=== PATIENT | female | born 1940 | race Caucasian/White ===

== ENCOUNTER → 2018-08-02 09:28 | Outpatient (CLI) | payer MEDICARE, BC, SELFPAY ==
--- NOTE | 2018-08-02 | ASPOS_PTH ---
PATIENT: BELTRAN MARC LOC: LAB U#:[id number] AGE/SX: 85/F ROOM: RE08/02/[address]: Dr. Danish King MD : 1940 BED: DIS: SPEC #: [id number] RECD: 08/02/18 13:24 STATUS: JOEY SIMÓN #: [id number] RUSTY: 08/02/18 00:[address]: Danish King DEPT: CYTOLOGY RECD BY: Wyatt Gaines ENTERED: 08/02/18 13:24 SP TYPE: ASP HERE OTHR DR: Dr. Mela Torres, DO Tissues: Neck, NOS Procedures: Pap Stain (control) Surgery Specimen Level IV Diff Quik Stain (control) Cell Block Cytology Other Fine Needle Asp on Site HEADER OPERATION: Right neck mass fine needle aspiration PRE-OP DIAGNOSIS: Right neck mass at angle of jaw TISSUE SUBMITTED: Right neck mass FNA, smear and fluid for cytology and cell block DIAGNOSIS CYTOLOGY Fine needle aspiration, right neck mass (smears and cell block): Consistent with Warthin's tumor. AM:sherlyn 08/03/18 COMMENT The specimen is evaluated at the time of FNA by Dr. Pemberton. 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 CYTOLOGY STUDY Slides are reviewed. CYTOLOGY GROSS Received is 0.2 ml of pink-elizabeth mucoid material labeled with the patient's name, and designated right neck mass. Four imprints and two paps are made from the submitted fluid and the rest is added to [employer]to[employer] for cell block preparation. Submitted for cytology study. / AM:sherlyn 08/02/18 TC:1 CPT: 05249, 93875, 63008, 87333
--- OUTSIDE RECORDS SUMMARY | 2018-09-18 08:47 | XMS RPT_ITS ---
:1940 Author Organization OHIP Care Team Providers Name Role Phone Ras King Attending Unavailable Ras King Referring Unavailable BRAYDEN KUMAR Primary Care Unavailable EDNA ROGERS Attending Unavailable JOSÉ D.OAlex Mack Primary Care Unavailable JOSÉ D.OAlex Mack Referring Unavailable SUE EDNA K Referring Unavailable JOSÉ D.O. BRAYDEN G Primary Care Unavailable DENA ROGERS K Attending Unavailable EDNA ROGERS K Referring Unavailable JOSÉ D.O. BRAYDEN G Primary Care Unavailable SUE, EDNA K Attending Unavailable JOSÉ D.O. BRAYDEN G Primary Care Unavailable JOSÉ D.O. BRAYDEN G Referring Unavailable SUE EDNA K Referring Unavailable JOSÉ D.O. BRAYDEN G Primary Care Unavailable SUE, EDNA K Referring Unavailable JOSÉ D.O. BRAYDEN G Primary Care Unavailable SUE EDNA K Attending Unavailable JOSÉ D.OAlex OWEN G Primary Care Unavailable JOSÉ, D.O. 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 [facility] Diagnosis w/o perforation or System abscess w/o Repository bleeding / K57.32(ICD-10) 08/11/2018 Admitting Unspecified asthma, Unknown Active [facility] Diagnosis uncomplicated / System J45.909(ICD-10) Repository 08/11/2018 Admitting Gastro-esophageal Unknown Active [facility] Diagnosis reflux disease System without esophagitis Repository / K21.9(ICD-10) 08/11/2018 Admitting Essential (primary) Unknown Active [facility] Diagnosis hypertension / System I10(ICD-10) Repository 08/11/2018 Admitting Hypothyroidism, Unknown Active [facility] Diagnosis unspecified / System E03.9(ICD-10) Repository 08/11/2018 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, unsp, stage Repository unspecified / H35.3290(ICD-10) 08/11/2018 Admitting Unspecified Unknown Active [facility] Diagnosis osteoarthritis, System unspecified site / Repository M19.90(ICD-10) 08/11/2018 Admitting Type 2 diabetes Unknown Active [facility] Diagnosis mellitus without System complications / Repository E11.9(ICD-10) 08/11/2018 Admitting Personal history of Unknown Active [facility] Diagnosis malignant neoplasm System of breast / Repository Z85.3(ICD-10) 08/11/2018 Admitting Cataract extraction Unknown Active [facility] Diagnosis status, left eye / System Z98.42(ICD-10) Repository 08/11/2018 Admitting Cataract extraction Unknown Active [facility] Diagnosis status, right eye / System Z98.41(ICD-10) Repository 08/11/2018 Admitting 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 / Repository Z90.710(ICD-10) 08/11/2018 Admitting Allergy status to Unknown Active [facility] Diagnosis oth drug/meds/biol System subst status / Repository Z88.8(ICD-10) 08/11/2018 Admitting Allergy status to Unknown Active [facility] Diagnosis narcotic agent System status / Repository Z88.5(ICD-10) 08/11/2018 Admitting Allergy status to Unknown Active [facility] Diagnosis other antibiotic System agents status / Repository Z88.1(ICD-10) 08/11/2018 Admitting Allergy status to Unknown Active [facility] Diagnosis penicillin / System Z88.0(ICD-10) Repository 08/11/2018 Admitting Unspecified Unknown Active [facility] Diagnosis abdominal pain / System R10.9(ICD-10) Repository 06/15/2018 Active Fat necrosis of EDNA ROGERS Active [facility] Other N64.1(ICD-10) [place] Repository 06/15/2018 Active Encounter for EDNA ROGERS Active [facility] screening [facility] Other for malignant [place] neoplasm of breast Repository / Z12.31(ICD-10) 06/15/2018 Admitting Unknown / EDNA ROGERS Active [facility] diagnosis UNK(Unknown) [facility] Repository 06/09/2018 Active Other abnormal and NA Active [facility] inconclusive [facility] Other findings on [place] diagnostic imaging Repository of breast / R92.8(ICD-10) 06/06/2018 Active Mastodynia / EDNA ROGERS Active [facility] N64.4(ICD-10) Clinic Other [place] Repository 06/06/2018 Active Unspecified lump in EDNA ROGERS Active [facility] the right breast, Clinic Other unspecified [place] quadrant / Repository N63.10(ICD-10) 06/18/2016 Active Personal history of EDNA ROGERS Active [facility] malignant neoplasm Clinic Other of breast / [place] Z85.3(ICD-10) Repository 06/18/2016 Active Inconclusive EDNA ROGERS Active [facility] mammogram / Clinic Other R92.2(ICD-10) [place] Repository 06/18/2016 Active 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 Clinic Other unspecified breast [place] / N60.19(ICD-10) Repository 06/06/2018 Active Unspecified lump in EDNA RGOERS Active [facility] the right breast, Clinic Other lower outer [place] quadrant / Repository N63.13(ICD-10) PROCEDURES PROCEDURES No Procedure Records FoundRESULTS RESULTS CT ABDOMEN/PELVIS W/ Observed: 08/11/2018 Status: F Source: [email or web address] CONTRAST 1:26 PM SYSTEM REPOSITORY Patient Name: BELTRAN MARC CT Exam Date/Time 08/11/2018 12:50:[address] Abdomen/Pelvis w/ IV Contrast (IV Onl Ordering Physician MD ANNA, [facility] Accession Number [id number] CPT4 Codes 40087 (CT Abdomen/Pelvis w/ IV Contrast (IV Onl), Q9967 (CT ISOVUE 370MG/[id number]) Reason For Exam ABDOMINAL PAIN Report EXAMINATION: CT of the Abdomen and Pelvis with Contrast. COMPARISON: None. REASON FOR STUDY: Abdominal pain. TECHNIQUE: Contiguous axial 3 mm images along with multiplanar reformations were extended from the lung bases through the pubic symphysis after intravenous infusion of 75 mL of Isovue-370. FINDINGS: Solid Organs: The hepatic parenchyma, spleen, pancreas and adrenal glands appear normal. Biliary Tree: The biliary tree is not appreciably dilated. The gallbladder appears normal. System: The kidneys, ureters and bladder appear normal. There are signs of prior hysterectomy. No adnexal abnormality is observed. GI System: Mid sigmoid colon is thickened, poorly defined and surrounded by mesenteric haziness. These findings are superimposed on diffuse diverticulosis. Peritoneum, Retroperitoneum And Mesentery: No abnormal fluid collection or mass observed. Vasculature: No significant findings. Musculoskeletal: Osseous structures appear intact. Extraskeletal soft tissues appear normal. Lung Bases: No significant findings. CONCLUSION(S): Probable mid- sigmoid diverticulitis superimposed on diverticulosis. Report Dictated on Final Dictating Physician: MD MARCELINO B NELSON Signed Date and Time: 08/11/2018 1:32 pm Signed by: MD MARCELINO B NELSON Transcribed Date and Time: 08/11/2018 1:33 HEMOGRAM W/ AUTODIFF Collected: 08/11/2018 Status: F Source: [email or web address] 11:38 AM SYSTEM REPOSITORY TYPE CODE TESTS RESULT OUT OF REFERENCE UNITS RANGE LAB IWBC 3.6-10.7 10*3/uL WBC High 14.0 LAB RBC 3.80-5.20 10*6/uL RBC Normal 4.65 LAB HGB 11.7-16.0 g/dL Hemoglobin Normal 13.5 LAB HCT 35.0-47.0 % Hematocrit Normal 39.6 LAB MCV 79.0-98.0 fL MCV Normal 85.3 LAB MCH 26.0-34.0 pg MCH Normal 29.1 LAB MCHC 32.0-36.0 % MCHC Normal 34.1 LAB RDW 11.5-14.5 % RDW Normal 13.4 LAB PLT 140-440 10*3/uL Platelet Normal 157 LAB MPV 7.4-10.4 fL MPV High 10.9 LAB GRAN% 40.0-80.0 % Granulocytes Normal 79.5 LAB LYMP% 20.0-40.0 % Low Lymphocytes 9.2 LAB MONO% 2.0-10.0 % Monocytes Normal 7.9 LAB EOS% 1.0-6.0 % Eosinophils Normal 2.7 LAB BAS% 0.0-2.0 % Basophils Normal 0.7 LAB ANC 1.8-7.0 10*3/uL Abs High Neutrophile Cnt 11.1 LAB ALC 1.0-4.3 10*3/uL Abs Lymph Cnt Normal 1.3 LAB AMC 0.0-0.8 10*3/uL Abs Monocyte High Cnt 1.1 LAB AEC 0.0-0.5 10*3/uL Abs Eosin Cnt Normal 0.4 LAB ABC 0.0-0.2 10*3/uL Abs Baso Cnt Normal 0.1 Performed By: #### HEMDF, CMP3M, LIPA4 #### [facility] [address] [place] [address] COMP PANEL WITH MG Collected: 08/11/2018 Status: F Source: [email or web address] REFLEX 11:38 AM SYSTEM REPOSITORY TYPE CODE TESTS RESULT OUT OF RANGE REFERENCE UNITS LAB NA3 135-145 mmol/L Normal Sodium 138 Result Comment: NOTE: New Sodium Reference Range effective 2018 @ 10:00 LAB K3 3.5-5.1 mmol/L Normal Potassium 3.7 LAB CL3 98-107 mmol/L Normal Chloride 98 LAB CO23 22-30 mmol/L High Carbon Dioxide 32 LAB ANIN3 NA Anion Gap 8 LAB GLUC3 70-100 mg/dL High Glucose 120 LAB BUN3 7-20 mg/dL Normal Urea Nitrogen 16 LAB CRET3 0.52-1.25 mg/dL Normal Creatinine 0.59 LAB GF3BR >60 mL/min eGFR > 60.0 LAB GF3WR >60 mL/min eGFR OTHER > 60.0 Result Comment: Source- MDRD equation with creatinine calibration to IDMS(NKDEP) eGFR not recommended for drug dose adjustment LAB CA3 8.4-10.4 mg/dL Calcium Normal 9.1 LAB ALB3 3.5-5.0 g/dL Albumin, Serum Normal 4.5 LAB TP3 6.3-8.2 g/dL Total Protein Normal 7.2 LAB BILT3 0.2-1.3 mg/dL Normal Bilirubin,Total 0.5 LAB ALKP3 38-126 U/L Alkaline Normal Phosphatase 52 LAB ALT3 13-69 U/L ALT (SGPT) Normal 32 LAB AST3 15-46 U/L AST (SGOT) Normal 25 Performed By: #### HEMDF, CMP3M, LIPA4 #### [employer] [facility] [address] [place] [address] LIPASE Collected: 08/11/2018 Status: F Source: [employer] 11:38 AM SYSTEM REPOSITORY TYPE CODE TESTS RESULT OUT OF RANGE REFERENCE UNITS LAB LIPA4 23-300 U/L Normal Lipase 98 Performed By: #### HEMDF, CMP3M, LIPA4 #### [employer] [facility] [address] [place] [address] URINALYSIS,MACRO Collected: 08/11/2018 Status: F Source: [employer] 11:38 AM SYSTEM REPOSITORY TYPE CODE TESTS RESULT OUT OF REFERENCE UNITS RANGE LAB APPUR Clear NA Appearance Clear Result Comment: CORRECTED RESULT...Previous above value was CLOUDY, verified on 08/11/18 at 11:50 by BJF . LAB COLUR Lt. Yellow NA Color YELLOW LAB USG 1.005-1.030 NA Specific Normal Doyle,Urine 1.006 LAB UPH 5.0-8.0 NA pH,Urine Normal 7.0 LAB ULUK Negative NA Leukocytes NEG LAB UNIT Negative NA Nitrites NEG LAB UPRO Negative mg/dL Total Protein,Urine NEG LAB UGLU Negative mg/dL Glucose,Urine NEG LAB UKET Negative mg/dL Ketone,Urine NEG LAB UURO 0-1 mg/dL Urobilinogen 0.2 LAB UBIL Negative NA Bilirubin,Ur NEG LAB UBLD Negative {RBC}/uL Occult Blood,Ur NEG Performed By: #### UAMAC, UAMIC #### [facility] [employer] [facility] [address] [place] [address] URINALYSIS,MICROSCOPIC Collected: Status: F Source: [facility] 08/11/2018 11:38 AM HEALTH SYSTEM REPOSITORY TYPE CODE TESTS RESULT OUT OF REFERENCE UNITS RANGE LAB WBCU 0-5 /[HPF] 0 WBC,Urine LAB RBCU 0-2 /[HPF] 0 RBC,Urine LAB EPIU 3-5 /[HPF] 0 Epithelial Cells LAB LAWANDA Negative NA Bacteria NEGATIVE LAB HYL 0-1 /[LPF] Cast, 0 Hyaline LAB YST Negative NA Yeast NOT PRESENT LAB SPRM Negative NA Sperm NOT PRESENT Performed By: #### UAMAC, UAMIC #### [facility] [address] [place] [address] ED PROVIDER NOTE Observed: 08/11/2018 Status: F Source: [employer] 11:02 AM SYSTEM REPOSITORY eMERGENCY dEPARTMENT eNCOUnter Pt Name: Beltran Marc Birthdate 1940 Date of evaluation: 08/11/2018 Provider: ROBERT CASTILLO MD CHIEF COMPLAINT Chief Complaint Patient presents with ? Abdominal Pain HISTORY OF PRESENT ILLNESS (Location/Symptom, Timing/Onset,Context/Setting, Quality, Duration, Modifying Factors, Severity) Note limiting factors. HPI Beltran Marc is a 78 y.o. female who presents to the emergency department Reports abdominal pain, symptoms started 6 days ago, symptoms at daily, she reports that she has pain in her LEFT flank but mostly in the rectum. She feels rectal urgency. The pain radiates from the LEFT flank to the rectum. Pain is sharp, intermittent, currently it is 0 out of 10. She has had nausea but no vomiting, no diarrhea. No hematochezia. She had a temperature of 100.4?F at home. Relief with bowel movement. No exacerbating factor. REVIEW OFSYSTEMS Review of Systems All other systems reviewed and are negative. PAST MEDICAL HISTORY Past Medical History: Diagnosis Date ? Asthma ? GERD (gastroesophageal reflux disease) ? History of breast cancer in female ? Hypertension ? Hypothyroidism ? Macular degeneration, wet (HCC) ? Osteoarthritis ? Swollen ankles ? Type II or unspecified type diabetes mellitus without mention of complication, not stated as uncontrolled SURGICAL HISTORY Past Surgical History: Procedure Laterality Date ? BREAST LUMPECTOMY Right ? CATARACT REMOVAL Bilateral ? EYE SURGERY ? HEMORRHOID SURGERY ? HYSTERECTOMY 03/1991 ? TONSILLECTOMY CURRENT MEDICATIONS Discharge Medication List as of 08/11/2018 2:15 PM CONTINUE these medications which have NOT CHANGED Details latanoprost (XALATAN) 0.005 % ophthalmic solution Place 1 drop into the right eye nightlyHistorical Med hydrALAZINE (APRESOLINE) 100 MG tablet Take 1 tablet by mouth every 8 hours, Disp-90 tablet, R-3Normal omeprazole (PRILOSEC) 40 MG delayed release capsule Take 40 mg by mouth dailyHistorical Med metoprolol succinate (TOPROL XL) 50 MG extended release tablet Take 50 mg by mouth dailyHistorical Med EPINEPHrine (EPIPEN 2-MELI) 0.3 MG/0.3ML SOAJ injection Inject 0.3 mg into the muscle as needed Use as directed for allergic reactionHistorical Med cloNIDine (CATAPRES) 0.2 MG tablet Take 0.2 mg by mouth 3 times dailyHistorical Med Lactobacillus (PROBIOTIC ACIDOPHILUS) CAPS Take 1 capsule by mouth dailyHistorical Med calcium citrate-vitamin D (CITRICAL + D) 315-250 MG-UNIT TABS per tablet Take 2 tablets by mouth 2 times daily (with meals)Historical Med Pyridoxine HCl (VITAMIN B-6) 50 MG tablet Take 50 mg by mouth 2 times dailyHistorical Med levothyroxine (SYNTHROID) 75 MCG tablet Take 1 tablet by mouth Daily, Disp-90 tablet, R-1 furosemide (LASIX) 20 MG tablet Take 1 tablet by mouth daily, Disp-90 tablet, R-1 enalapril (VASOTEC) 20 MG tablet Take 1 tablet by mouth 2 times daily, Disp-180 tablet, R-1 fluticasone (FLONASE) 50 MCG/ACT nasal spray 2 sprays by Nasal route daily, Disp-3 Bottle, R-1 guaiFENesin (MUCINEX) 600 MG SR tablet Take 2 tablets by mouth 2 times daily, Disp-180 tablet, R-1 magnesium (MAGNESIUM-OXIDE) 250 MG TABS tablet Take 250 mg by mouth 2 times daily Historical Med clobetasol (TEMOVATE) 0.05 % cream Apply topically as needed Apply topically 2 times daily. , Topical, PRN, Until Discontinued, Historical Med Ascorbic Acid (VITAMIN C) 250 MG tablet Take 500 mg by mouth 2 times daily vitamin E 400 UNIT capsule Take 400 Units by mouth daily selenium 50 MCG tablet Take 50 mcg by mouth daily Cholecalciferol (VITAMIN D-3 PO) Take 400 mg by mouth daily Historical Med ALLERGIES Amaranth (fd&c red #2); Apple; Barley grass; Cha pod extract; Benadryl [diphenhydramine]; [place]-containing products; Demerol hcl [meperidine]; Erythromycin; Grapeseed extract [nutritional supplements]; Levaquin [levofloxacin in d5w]; Molds & smuts; Neomycin; [place] fruit [citrus]; Peanut-containing drug products; Pollen extract; Quinoa kale & hemp [alitraq]; Rice; [place] grass flower pollen extract [gramineae pollens]; Soybean-containing drug products; Tree nut [macadamia nut oil]; Wheat bran; Zyrtec [cetirizine]; Avapro [irbesartan]; Cephalosporins; Codeine; Cozaar [losartan]; Lexapro [escitalopram oxalate]; Norvasc [amlodipine besylate]; and Pcn [penicillins] FAMILY HISTORY Family History Problem Relation Age of Onset ? Cancer Mother ? Cancer Father skin ? High Blood Pressure Father ? Heart Disease Father ? Diabetes Father SOCIAL HISTORY Social History Social History ? Marital status: Spouse name: N/A ? Number of children: N/A ? Years of education: N/A Social History Main Topics ? Smoking status: Never Smoker ? Smokeless tobacco: Never Used ? Alcohol use No ? Drug use: No ? Sexual activity: Not Asked Other Topics Concern ? None Social History Narrative ? None PHYSICAL EXAM Physical Exam Constitutional: Non-toxic appearance. HENT: Head: Atraumatic. Right Ear: External ear normal. Left Ear: External ear normal. Nose: Nose normal. Mouth/Throat: Oropharynx is clear and moist. Eyes: Conjunctivae are normal. Neck: Neck supple. No JVD present. No tracheal deviation present. Cardiovascular: Normal rate, regular rhythm and normal heart sounds. Pulmonary/Chest: Effort normal and breath sounds normal. Abdominal: Soft. Bowel sounds are normal. She exhibits no distension. There is no tenderness. There is no rebound and no guarding. Musculoskeletal: Right lower leg: She exhibits no tenderness and no swelling. Left lower leg: She exhibits no tenderness and no swelling. Lymphadenopathy: She has no cervical adenopathy. Neurological: She is alert. Coordination normal. Skin: No rash noted. She is not diaphoretic. No erythema. No pallor. Psychiatric: She has a normal mood and affect. Her behavior is normal. Thought content normal. Nursing note and vitals reviewed. Vitals: 08/11/18 1107 08/11/18 1430 BP: (!) 185/90 (!) 166/71 Pulse: 73 65 Resp: 20 18 Temp: 98.6 ?F (37 ?C) TempSrc: Temporal SpO2: 96% 97% Weight: 67.8 kg (149 lb 8 oz) DIAGNOSTIC RESULTS EKG RADIOLOGY Interpretation per the Radiologist below, if available at the time of this note: Ct Abdomen Pelvis W Contrast Result Date: 08/11/2018 Patient Name: BELTRAN MARC ---CT--- Exam Date/Time 08/11/2018 12:50:[address] Abdomen/Pelvis w/ IV Contrast (IV Onl Ordering Physician MD ANNA, [facility] Accession Number [id number] CPT4 Codes 24777 (CT Abdomen/Pelvis w/ IV Contrast (IV Onl), Q9967 (CT ISOVUE 370MG/ML&[id number]&ML&[id number]) Reason For Exam ABDOMINAL PAIN Report EXAMINATION: CT of the Abdomen and Pelvis with Contrast. COMPARISON: None. REASON FOR STUDY: Abdominal pain. TECHNIQUE: Contiguous axial 3 mm images along with multiplanar reformations were extended from the lung bases through the pubic symphysis after intravenous infusion of 75 mL of Isovue-370. FINDINGS: Solid Organs: The hepatic parenchyma, spleen, pancreas and adrenal glands appear normal. Biliary Tree: The biliary tree is not appreciably dilated. The gallbladder appears normal. System: The kidneys, ureters and bladder appear normal. There are signs of prior hysterectomy. No adnexal abnormality is observed. GI System: Mid sigmoid colon is thickened, poorly defined and surrounded by mesenteric haziness. These findings are superimposed on diffuse diverticulosis. Peritoneum, Retroperitoneum And Mesentery: No abnormal fluid collection or mass observed. Vasculature: No significant findings. Musculoskeletal: Osseous structures appear intact. Extraskeletal soft tissues appear normal. Lung Bases: No significant findings. CONCLUSION(S): Probable mid- sigmoid diverticulitis superimposed on diverticulosis. Report Dictated on --- Final --- Dictating Physician: MD MARCELINO B NELSON Signed Date and Time: 08/11/2018 1:32 pm Signed by: MD MARCELINO B NELSON Transcribed Date and Time: 08/11/2018 1:33 SCREENINGS LABS: Results for orders placed or performed during the hospital encounter of 08/11/18 Hemogram (CBC) w/Auto Diff Result Value Ref Range WBC 14.0 (H) 3.6 - 10.7 10*3/uL RBC 4.65 3.80 - 5.20 10*6/uL Hemoglobin 13.5 11.7 - 16.0 g/dL Hematocrit 39.6 35.0 - 47.0 % MCV 85.3 79.0 - 98.0 fL MCH 29.1 26.0 - 34.0 pg MCHC 34.1 32.0 - 36.0 % RDW 13.4 11.5 - 14.5 % Platelets 157 140 - 440 10*3/uL MPV 10.9 (H) 7.4 - 10.4 fL Granulocytes % 79.5 40.0 - 80.0 % Lymphocyte % 9.2 (L) 20.0 - 40.0 % Monocytes 7.9 2.0 - 10.0 % Eosinophils 2.7 1.0 - 6.0 % Basophils 0.7 0.0 - 2.0 % Absolute Neut # 11.1 (H) 1.8 - 7.0 10*3/uL Absolute Lymph # 1.3 1.0 - 4.3 10*3/uL Absolute [place] # 1.1 (H) 0.0 - 0.8 10*3/uL Absolute Eos # 0.4 0.0 - 0.5 10*3/uL Absolute Baso # 0.1 0.0 - 0.2 10*3/uL Comprehensive Metabolic Panel w/ Reflex to MG Result Value Ref Range Sodium 138 135 - 145 mmol/L Potassium 3.7 3.5 - 5.1 mmol/L Chloride 98 98 - 107 mmol/L CO2 32 (H) 22 - 30 mmol/L Anion Gap 8 NA Glucose 120 (H) 70 - 100 mg/dL BUN 16 7 - 20 mg/dL CREATININE 0.59 0.52 - 1.25 mg/dL eGFR >60.0 >60 mL/min EGFR IF NonAfrican Ivorian >60.0 >60 mL/min Calcium 9.1 8.4 - 10.4 mg/dL Albumin,Serum 4.5 3.5 - 5.0 g/dL Total Protein 7.2 6.3 - 8.2 g/dL Total Bilirubin 0.5 0.2 - 1.3 mg/dL Alkaline Phosphatase 52 38 - 126 U/L ALT 32 13 - 69 U/L AST 25 15 - 46 U/L Lipase Result Value Ref Range Lipase 98 23 - 300 U/L Urinalysis, reflex to microscopic Result Value Ref Range Appearance Clear Clear NA Color, UA YELLOW Lt. Yellow NA Specific Doyle, Urine 1.006 1.005 - 1.030 NA pH, Urine 7.0 5.0 - 8.0 NA LEUKOCYTES, UA NEG Negative NA Nitrite, Urine NEG Negative NA Total Protein, Urine NEG Negative mg/dL Glucose, Ur NEG Negative mg/dL Ketones, Urine NEG Negative mg/dL Urobilinogen, Urine 0.2 0 - 1 mg/dL Bilirubin, Urine NEG Negative NA Occult Blood,Urine NEG Negative [RBC]/uL Urinalysis with Microscopic Result Value Ref Range WBC, UA 0 0 - 5 /[HPF] RBC, UA 0 0 - 2 /[HPF] Epithelial Cells 0 3 - 5 /[HPF] Bacteria, UA NEGATIVE Negative NA Hyaline Casts, UA 0 0 - 1 /[LPF] Yeast, UA NOT PRESENT Negative NA Sperm, UA NOT PRESENT Negative NA EMERGENCY DEPARTMENT COURSE and DIFFERENTIAL DIAGNOSIS/MDM: ED Medication Orders Start Ordered Status Ordering Provider 08/11/18 1231 08/11/18 1231 iopamidol (ISOVUE-370) 76 % injection 75 mL IMG ONCE PRN Last OCT action: Given - by BALTAZAR COX on 08/11/18 at 1238 ROBERT CASTILLO 08/11/18 1116 08/11/18 1115 0.9 % sodium chloride bolus ONCE Last OCT action: Stopped - by MELINDA RODRÍGUEZ on 08/11/18 at 1207 ROBERT CASTILLO MDM. REVAL: CONSULTS: None PROCEDURES: Procedures FINAL IMPRESSION 1. Sigmoid diverticulitis DISPOSITION/PLAN DISPOSITION Decision To Discharge 08/11/2018 02:13:23 PM PATIENT REFERRED TO: Brayden Kumar DO [address] [place] [id number] In 1 day [facility] ED [address] [facility] [address] In 1 day if not better DISCHARGE MEDICATIONS: Discharge Medication List as of 08/11/2018 2:15 PM START taking these medications Details metroNIDAZOLE (FLAGYL) 500 MG tablet Take 1 tablet by mouth 3 times daily for 4 days, Disp-12 tablet, R-0Print MD Robert RODRIGUEZ MD 08/12/18 0927 ASP DONE IN LAB Observed: 08/02/2018 Status: F Source: [facility] 12:00 AM [facility] REPOSITORY Patient: BELTRAN MARC : 1940 (78/F) Acct Num: [id number] Phys: Christine CABA,[place] Unit Num: [id number] Loc: LAB Specimen: [id number] Received: 08/02/18 - 1324 Spec Type: ASP HERE TISSUES 1 TISSUES: Neck, NOS COMMENT The specimen is evaluated at the time of FNA by Dr. Pemberton. 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 CYTOLOGY GROSS Received is 0.2 ml of pink-elizabeth mucoid material labeled with the patient's name, and designated right neck mass. Four imprints and two paps are made from the submitted fluid and the rest is added to CytoLyt for cell block preparation. Submitted for cytology study. / AM:sherlyn 08/02/18 TC:1 CPT: 45888, 00430, 22168, 34987 CYTOLOGY STUDY Slides are reviewed. DIAGNOSIS CYTOLOGY Fine needle aspiration, right neck mass (smears and cell block): Consistent with Warthin's tumor. AM:sherlyn 08/03/18 HEADER OPERATION: Right neck mass fine needle aspiration PRE-OP DIAGNOSIS: Right neck mass at angle of jaw TISSUE SUBMITTED: Right neck mass FNA, smear and fluid for cytology and cell block Signed Kike Pemberton 08/03/18 <signature on file> Performed By: #### PASPOS #### [facility]ri [facility] [address] [place], [address] PROGRESS Observed: 06/15/2018 Status: COMPLETED Source: [place] 10:51 AM CLINIC OTHER CAMPUS REPOSITORY HNO ID: [id number] Author: Edna Rogers Service: (none) Author Type: Physician Type: Progress Notes Filed: 06/15/2018 11:35 AM Note Text: HPI: Ms. Marc is a White 78 year old woman who presents for follow up breast biopsy. Patient does perform monthly self breast exams. Patient denies: concerns FAMILY HISTORY Problem Relation Age of Onset - Hypertension Father - Heart Father - Diabetes Father - Lipids Mother - Heart Mother - Osteoporosis Mother - Heart Brother - Breast Cancer Paternal Aunt great PAST MEDICAL HISTORY Diagnosis Date - Asthma - Breast cancer (HCC) 2004 right lumpectomy - Dense breast 05/16/15 - Diabetes (HCC) - Fibrocystic disease of breast 05/16/15 - GERD (gastroesophageal reflux disease) - Hemorrhoid - History of anemia - Hypertension - Migraine - Multiple allergies PAST SURGICAL HISTORY Procedure Laterality Date - APPENDECTOMY - BREAST SURGERY HX Right 05/04/2005 right lumpectomy - BREAST SURGERY HX 05/15/2005 [place] Lymph Node Biopsy - BREAST SURGERY HX Left 09/14/2005 Benign Papilloma - BREAST SURGERY HX Left 12/15/2010 benign Fatty tumor - BREAST SURGERY HX Right 03/21/2012 Benign Fatty tumor - DELIVERY ONLY , low transverse - DELIVERY ONLY , low transverse - EYE SURGERY HX Right 03/07/2009 Cataract - EYE SURGERY HX Left 04/04/2009 Cataract - SKIN BIOPSY HX 10/11/2012 atypical mole - SKIN BIOPSY HX 05/25/2014 atypical mole - TONSILLECTOMY AND ADENOIDECTOMY HX - TOTAL ABDOM HYSTERECTOMY 1990 Hysterectomy, SHANDA Social History Marital status: Spouse name: Years of education: Number of children: Social History Main Topics Smoking status: Never Smoker Smokeless tobacco: Never Used Alcohol use: No Drug use: No No question data found. LAB AND IMAGING RESULTS: FINAL DIAGNOSIS: ?BREAST, RIGHT SUBAREOLAR AT 6 O'CLOCK, CORE BIOPSIES - BENIGN BREAST TISSUE WITH EXTENSIVE FIBROSIS WITH FAT NECROSIS AND CHRONIC INFLAMMATION. OPERATIVE PROCEDURE: Ultrasound guided right breast biopsy CLINICAL INFORMATION: Right breast mass subareolar 6:00 , clip:coil; suspicious distortion/ thickening at site of prior lumpectomy xrt ? recurrent CA vs scar. REVIEW OF SYSTEMS GENERAL: No weight loss, malaise or fevers HEENT: Negative for frequent or significant headaches NECK: Negative for lumps, goiter, pain and significant neck swelling RESPIRATORY: Negative for cough, hemoptysis, wheezing, COPD, dyspnea or shortness of breath CARDIOVASCULAR: Negative for chest pain, leg swelling, hypertension, CHF or palpitations GI: No nausea, vomiting, or diarrhea PHYSICAL EXAMINATION: BP 145/52 Pulse (!) 59 Ht 149.9 cm (4' 11) Wt 61.2 kg (135 lb) BMI 27.27 kg/m? General appearance: Well appearing, alert Skin: negative Eyes: Anicteric sclera Extremities:No clubbing, cyanosis, or edema. Neuro: Alert and oriented times three Breast Exam: On visual in spection of the breasts finds them to be Breasts: symmetric RIGHT IMPRESSION / PLAN: This is an 78-year-old female Personal history of right breast cancer treated with lumpectomy by radiation therapy. She recently underwent breast imaging which revealed a suspicious right breast lesion that required biopsy. She is here today for the pathology results. Clinical examination reveals no evidence of post procedural complications.. Pathologic findings are as follows: FINAL DIAGNOSIS: ?BREAST, RIGHT SUBAREOLAR AT 6 O'CLOCK, CORE BIOPSIES - BENIGN BREAST TISSUE WITH EXTENSIVE FIBROSIS WITH FAT NECROSIS AND CHRONIC INFLAMMATION. OPERATIVE PROCEDURE: Ultrasound guided right breast biopsy CLINICAL INFORMATION: Right breast mass subareolar 6:00 , clip:coil; suspicious distortion/ thickening at site of prior lumpectomy xrt ? recurrent CA vs scar. These findings are considered both clinically and radiologically concordant. At this point, reassurances provided. I will see her in 6 months for clinical breast examination. A prescription was provided for a screening mammogram in 1 year. DIAGNOSIS: No diagnosis found. Monthly self breast exams encouraged. I discussed my findings and recommendations with the patient. Ms. Marc is in agreement with the plan. Ute Holbrook CMA CNOV Observed: 06/15/2018 Status: COMPLETED Source: [place] 10:45 AM CLINIC OTHER CAMPUS REPOSITORY Office Visit (AGGBRCR) BELTRAN MARC ([id number]) 1940 F Date Time Provider Department 06/15/18 10:45 AM EDNA ROGERS [facility] During your visit today, we recorded the following information about you: Pulse Blood pressure Weight Height 59/minute 145/52 61.2 kg 1.499 m Ute Holbrook CMA 06/15/2018 10:51 AM Signed Patient here for follow up from breast biopsy. Patient relates steri strips are still in tact, denies any other concerns. Ute Holbrook [facility] Edna Rogers MD 06/15/2018 11:35 AM Signed HPI: Ms. Marc is a White 78 year old woman who presents for follow up breast biopsy. Patient does perform monthly self breast exams. Patient denies: concerns FAMILY HISTORY Problem Relation Age of Onset - Hypertension Father - Heart Father - Diabetes Father - Lipids Mother - Heart Mother - Osteoporosis Mother - Heart Brother - Breast Cancer Paternal Aunt great PAST MEDICAL HISTORY Diagnosis Date - Asthma - Breast cancer (HCC) 2004 right lumpectomy - Dense breast 05/16/15 - Diabetes (HCC) - Fibrocystic disease of breast 05/16/15 - GERD (gastroesophageal reflux disease) - Hemorrhoid - History of anemia - Hypertension - Migraine - Multiple allergies PAST SURGICAL HISTORY Procedure Laterality Date - APPENDECTOMY - BREAST SURGERY HX Right 05/04/2005 right lumpectomy - BREAST SURGERY HX 05/15/2005 [place] Lymph Node Biopsy - BREAST SURGERY HX Left 09/14/2005 Benign Papilloma - BREAST SURGERY HX Left 12/15/2010 benign Fatty tumor - BREAST SURGERY HX Right 03/21/2012 Benign Fatty tumor - DELIVERY ONLY , low transverse - DELIVERY ONLY , low transverse - EYE SURGERY HX Right 03/07/2009 Cataract - EYE SURGERY HX Left 04/04/2009 Cataract - SKIN BIOPSY HX 10/11/2012 atypical mole - SKIN BIOPSY HX 05/25/2014 atypical mole - TONSILLECTOMY AND ADENOIDECTOMY HX - TOTAL ABDOM HYSTERECTOMY 1990 Hysterectomy, SHANDA Social History Marital status: Spouse name: Years of education: Number of children: Social History Main Topics Smoking status: Never Smoker Smokeless tobacco: Never Used Alcohol use: No Drug use: No No question data found. LAB AND IMAGING RESULTS: FINAL DIAGNOSIS: ?BREAST, RIGHT SUBAREOLAR AT 6 O'CLOCK, CORE BIOPSIES - BENIGN BREAST TISSUE WITH EXTENSIVE FIBROSIS WITH FAT NECROSIS AND CHRONIC INFLAMMATION. OPERATIVE PROCEDURE: Ultrasound guided right breast biopsy CLINICAL INFORMATION: Right breast mass subareolar 6:00 , clip:coil; suspicious distortion/ thickening at site of prior lumpectomy xrt ? recurrent CA vs scar. REVIEW OF SYSTEMS GENERAL: No weight loss, malaise or fevers HEENT: Negative for frequent or significant headaches NECK: Negative for lumps, goiter, pain and significant neck swelling RESPIRATORY: Negative for cough, hemoptysis, wheezing, COPD, dyspnea or shortness of breath CARDIOVASCULAR: Negative for chest pain, leg swelling, hypertension, CHF or palpitations GI: No nausea, vomiting, or diarrhea PHYSICAL EXAMINATION: BP 145/52 Pulse (!) 59 Ht 149.9 cm (4' 11) Wt 61.2 kg (135 lb) BMI 27.27 kg/m? General appearance: Well appearing, alert Skin: negative Eyes: Anicteric sclera Extremities:No clubbing, cyanosis, or edema. Neuro: Alert and oriented times three Breast Exam: On visual in spection of the breasts finds them to be Breasts: symmetric RIGHT IMPRESSION / PLAN: This is an 78-year-old female Personal history of right breast cancer treated with lumpectomy by radiation therapy. She recently underwent breast imaging which revealed a suspicious right breast lesion that required biopsy. She is here today for the pathology results. Clinical examination reveals no evidence of post procedural complications.. Pathologic findings are as follows: FINAL DIAGNOSIS: ?BREAST, RIGHT SUBAREOLAR AT 6 O'CLOCK, CORE BIOPSIES - BENIGN BREAST TISSUE WITH EXTENSIVE FIBROSIS WITH FAT NECROSIS AND CHRONIC INFLAMMATION. OPERATIVE PROCEDURE: Ultrasound guided right breast biopsy CLINICAL INFORMATION: Right breast mass subareolar 6:00 , clip:coil; suspicious distortion/ thickening at site of prior lumpectomy xrt ? recurrent CA vs scar. These findings are considered both clinically and radiologically concordant. At this point, reassurances provided. I will see her in 6 months for clinical breast examination. A prescription was provided for a screening mammogram in 1 year. DIAGNOSIS: No diagnosis found. Monthly self breast exams encouraged. I discussed my findings and recommendations with the patient. Ms. Marc is in agreement with the plan. Ute Holbrook CMA Manager Cash: Facesheet ID: [id number] 06/15/2018 12:00 AM Author: MICHELLE PROVIDER Signed by [facility] PROVIDER on 06/15/2018 at 10:30 AM Document text: Display document [id number] only Referring Provider: BRAYDEN KUMAR [[id number]] Allergies As of Date: 06/15/2018 Noted Allergy Reaction CEPHALOSPORINS 08/13/2015 2 - Rash AVAPRO (IRBESARTAN) 08/13/2015 2 - Rash BENADRYL (DIPHENHYDRAMINE HCL) 08/13/2015 14 - Other: See Comments Comments: Difficulty swallowing CODEINE 08/13/2015 5 - Intolerance COZAAR (LOSARTAN POTASSIUM) 08/13/2015 2 - Rash DEMEROL (MEPERIDINE (PF)) 08/13/2015 5 - Intolerance ERYTHROMYCIN 08/13/2015 7 - Swelling LEXAPRO (ESCITALOPRAM OXALATE) 08/13/2015 2 - Rash NEOMYCIN 08/13/2015 2 - Rash NORVASC (AMLODIPINE BESYLATE) 08/13/2015 2 - Rash PENICILLINS 08/13/2015 2 - Rash ZYRTEC (CETIRIZINE HCL) 08/13/2015 5 - Intolerance Date Reviewed: 06/15/2018 Reviewed by: Edna Rogers - Fully Assessed Reason for Visit: Breast Mass [284] Cmt: Right Primary Visit Diagnosis:Fat necrosis of breast [N64.1] Other Visit Diagnoses:Breast lump on right side at 6 o'clock position [N63.10] Fibrocystic breast disease (FCBD) in female, unspecified laterality [N60.19] Dense breast tissue on mammogram [R92.2] Personal history of breast cancer [Z85.3] Mass of lower outer quadrant of right breast [N63.13] Breast pain, left [N64.4] Visit for screening mammogram [Z12.31] Order(s):[facility] SCREENING [facility] TOMAS [[id number]] Order #: [id number] FUTURE Prescriptions as of 06/15/2018 Sig: CHOLECALCIFEROL (VITAMIN D3) * Take by mouth. HYDRALAZINE 100 MG TABLET Take 100 mg by mouth three ti* LEVOTHYROXINE 88 MCG TABLET Take 88 mcg by mouth daily be* MAGNESIUM (OXIDE/AA CHELATE) * Take by mouth once daily. CLONIDINE HCL 0.1 MG TABLET DILT-XR 120 MG CAPSULE, EXTEN* PROBIOTIC 4X ORAL Take by mouth. ASCORBIC ACID (VITAMIN C) 500* Take by mouth. MULTIVITAMIN TABLET Take 1 tablet by mouth once d* VITAMIN B COMPLEX ORAL Take by mouth. VITAMIN D2 ORAL Take by mouth. VITAMIN E 400 UNIT CAPSULE Take 400 Units by mouth once * ENALAPRIL MALEATE 20 MG TABLET FLUTICASONE 50 MCG/ACTUATION * OMEPRAZOLE 20 MG CAPSULE,LEON* FEXOFENADINE 180 MG TABLET Take 180 mg by mouth once wilda* EPINEPHRINE 0.3 MG/0.3 ML INJ* Inject 0.3 mL intramuscularly* Patient not taking: Reported on 06/15/2018 Problem List As Of Date 06/15/2018 Noted Resolved Allergic rhinitis due to pollen [J30.1] INVALID FOR* Allergic rhinitis due to house dust mite [J30.8*INVALID FOR* Food allergy [Z91.018] INVALID FOR* Allergic rhinitis caused by mold [J30.89] INVALID FOR* Allergic rhinitis due to animal hair and dander*INVALID FOR* Type 2 diabetes mellitus without complication (*INVALID FOR* Mild intermittent asthma without complication [*INVALID FOR* Eosinophilic esophagitis [K20.0] INVALID FOR* Allergy status to penicillin [Z88.0] INVALID FOR* Fibrocystic breast disease (FCBD) in female [N6*INVALID FOR* Dense breast tissue on mammogram [R92.2] INVALID FOR* Personal history of breast cancer [Z85.3] INVALID FOR* Breast lump on right side at 6 o'clock position*INVALID FOR* Breast pain, left [N64.4] INVALID FOR* Fat necrosis of breast [N64.1] INVALID FOR* Visit Notes: >> Ute Holbrook Wed Jun 15, 2018 10:50 AM Status: Signed Patient here for follow up from breast biopsy. Patient relates steri strips are still in tact, denies any other concerns. Ute Holbrook CMA Follow-up and Disposition History Recorded Letter Text Encounter Status:Closed by EDNA ROGERS MD on 06/15/18 MAMM DIAGNOSTIC RIGHT Observed: 06/09/2018 Status: F Source: [facility] 11:54 AM HEALTH SYSTEM REPOSITORY Performed at [facility] APPROVED BY: SHAHLA TY MD FINAL REPORT #[id number] - MAMM US BIOPSY BREAST RIGHT ULTRASOUND GUIDED BIOPSY RIGHT BREAST WITH MARKING DEVICE INSERTED AND POST DIGITAL MAMMOGRAPHIC AND ULTRASOUND IMAGIN06/09/2018 CLINICAL: Ultrasound guided biopsy right breast of a 3cm irregular area at 6 o'clock subareolar location. PATIENT CONSENT: The risks, benefits and alternatives were discussed with the patient. Verbal and written consent was obtained. The patient's name and date of were verified. Site confirmation was done and the site marked prior to the procedure starting. Audible Time Out: 1120 Procedure Start: 1125 Procedure End: 1130 PROCEDURE: RIGHT breast ultrasound guided biopsy of a 3cm irregular area at 6 o'clock subareolar depth: COIL clip placed: Correlation is made to exam dated: 06/06/2018 ultrasound - [facility]. An ultrasound guided biopsy using real-time ultrasound was performed for the concerning 3 cm mass located in the right breast central to the nipple in the retroareolar region. This was described on the previous mammography and ultrasound reports. The skin was prepped in the usual manner. Local anesthetic was administered to the access site. A skin reji was made in the breast. The abnormality was approached from the medial aspect. A 12 gauge biopsy needle was placed adjacent to the abnormality through an introducer device under ultrasound guidance. Once the needle was documented to be in the c orrect location, four cores were obtained using marquee coaxial needle. A coil clip was inserted into the biopsy cavity. A skin closure strip and a sterile dressing were applied to the access site. P ost procedure digital mammographic and ultrasound imaging demonstrates the clip at the targeted area. The specimens were sent to the laboratory for pathological analysis. IMPRESSION: ULTRASOUND GUIDED BIOPSY BENIGN Ultrasound guided biopsy of the 3 cm mass in the right breast central to the nipple in the retroareolar region was successful with no apparent post procedure complications. Pathology indicates benign f inding and inflammatory pseudotumor (IF). Pathology results are concordant with imaging findings. #[id number] - MAMM DIAGNOSTIC RIGHT UNILATERAL RIGHT: 06/09/2018 Comparison is made to exam dated: 06/06/2018 ultrasound [facility]. There are scattered fibroglandular elements in the right breast. There is a marker clip in the appropriate position in the right breast. This is seen in additional views. This marker clip placement is at biopsy site. POST PROCEDURE MAMMOGRAM FOR MARKER PLACEMENT There was a successful marker clip placement in the right breast. Return to annual mammogram screening schedule is recommended. SUMMARY: Pathology results are BENIGN and CONCORDANT as follows: FINAL DIAGNOSIS: ?BREAST, RIGHT SUBAREOLAR AT 6 O'CLOCK, CORE BIOPSIES - BENIGN BREAST TISSUE WITH EXTENSIVE FIBROSIS WITH FAT NECROSIS AND CHRONIC INFLAMMATION. RECOMMENDATION: Continued clinical follow up of the palpable area is recommended. This biopsy is considered benign and concordant as follows: This patient had a prior history of lumpectomy and radiation in this area. T he patient reports this area feels firmer. Mammographically, the overall appearance is unchanged since at least 2012 allowing for differences in positioning, likely interval weight loss, and technical d ifferences. The patient may return to annual screening mammography. The patient will follow up with Dr. Rogers for results and recommendations. Shahla davenport/emily:06/13/2018 11:33:42 copy to: BRAYDEN KUMAR D.O., ph: [phone], fax: [phone] Home Security Alarm Installer: Kassidy Cox R.D.M.S., [facility] Mammogram BI-RADS: Post-procedure mammogram for marker placement MAMM US BIOPSY Observed: 06/09/2018 Status: F Source: [facility] RIGHT 11:49 AM HEALTH SYSTEM REPOSITORY Performed at [facility] APPROVED BY: SHAHLA TY MD FINAL REPORT #[id number] - MAMM US BIOPSY BREAST RIGHT ULTRASOUND GUIDED BIOPSY RIGHT BREAST WITH MARKING DEVICE INSERTED AND POST DIGITAL MAMMOGRAPHIC AND ULTRASOUND IMAGIN06/09/2018 CLINICAL: Ultrasound guided biopsy right breast of a 3cm irregular area at 6 o'clock subareolar location. PATIENT CONSENT: The risks, benefits and alternatives were discussed with the patient. Verbal and written consent was obtained. The patient's name and date of were verified. Site confirmation was done and the site marked prior to the procedure starting. Audible Time Out: 1120 Procedure Start: 1125 Procedure End: 1130 PROCEDURE: RIGHT breast ultrasound guided biopsy of a 3cm irregular area at 6 o'clock subareolar depth: COIL clip placed: Correlation is made to exam dated: 06/06/2018 ultrasound - [facility]. An ultrasound guided biopsy using real-time ultrasound was performed for the concerning 3 cm mass located in the right breast central to the nipple in the retroareolar region. This was described on the previous mammography and ultrasound reports. The skin was prepped in the usual manner. Local anesthetic was administered to the access site. A skin reji was made in the breast. The abnormality was approached from the medial aspect. A 12 gauge biopsy needle was placed adjacent to the abnormality through an introducer device under ultrasound guidance. Once the needle was documented to be in the c orrect location, four cores were obtained using marquee coaxial needle. A coil clip was inserted into the biopsy cavity. A skin closure strip and a sterile dressing were applied to the access site. P ost procedure digital mammographic and ultrasound imaging demonstrates the clip at the targeted area. The specimens were sent to the laboratory for pathological analysis. IMPRESSION: ULTRASOUND GUIDED BIOPSY BENIGN Ultrasound guided biopsy of the 3 cm mass in the right breast central to the nipple in the retroareolar region was successful with no apparent post procedure complications. Pathology indicates benign f inding and inflammatory pseudotumor (IF). Pathology results are concordant with imaging findings. #[id number] - MAMM DIAGNOSTIC RIGHT UNILATERAL RIGHT: 06/09/2018 Comparison is made to exam dated: 06/06/2018 ultrasound - [facility]. There are scattered fibroglandular elements in the right breast. There is a marker clip in the appropriate position in the right breast. This is seen in additional views. This marker clip placement is at biopsy site. POST PROCEDURE MAMMOGRAM FOR MARKER PLACEMENT There was a successful marker clip placement in the right breast. Return to annual mammogram screening schedule is recommended. SUMMARY: Pathology results are BENIGN and CONCORDANT as follows: FINAL DIAGNOSIS: ?BREAST, RIGHT SUBAREOLAR AT 6 O'CLOCK, CORE BIOPSIES - BENIGN BREAST TISSUE WITH EXTENSIVE FIBROSIS WITH FAT NECROSIS AND CHRONIC INFLAMMATION. RECOMMENDATION: Continued clinical follow up of the palpable area is recommended. This biopsy is considered benign and concordant as follows: This patient had a prior history of lumpectomy and radiation in this area. T he patient reports this area feels firmer. Mammographically, the overall appearance is unchanged since at least 2012 allowing for differences in positioning, likely interval weight loss, and technical d ifferences. The patient may return to annual screening mammography. The patient will follow up with Dr. Rogers for results and recommendations. Shahla davenport/emily:06/13/2018 11:33:42 copy to: BRAYDEN KUMAR D.O., ph: [phone], fax: [phone] Home Security Alarm Installer: Kassidy Cox R.D.M.S., [facility] Mammogram BI-RADS: Post-procedure mammogram for marker placement SURGICAL TISSUE EXAM Observed: 06/09/2018 Status: F Source: [facility] 12:00 AM HEALTH SYSTEM REPOSITORY Test performed at [place] [address] NAME: BELTRAN MARC REQUESTING: EDNA ROGERS M.D. COPY TO: [facility] RADIOLOGY FINAL DIAGNOSIS: BREAST, RIGHT SUBAREOLAR AT 6 O'CLOCK, CORE BIOPSIES - BENIGN BREAST TISSUE WITH EXTENSIVE FIBROSIS WITH FAT NECROSIS AND CHRONIC INFLAMMATION. OPERATIVE PROCEDURE: Ultrasound guided right breast biopsy CLINICAL INFORMATION: Right breast mass subareolar 6:00 , clip:coil; suspicious distortion/ thickening at site of prior lumpectomy xrt ? recurrent CA vs scar. GROSS DESCRIPTION: Four cores x 12g, obtained 11:25, formalin 11:25 Received in formalin labeled right breast mass, subareolar 6 o'clock (coil clip) are four cylindrical segments of yellow to white fibrofatty tissue each measuring 2.0 cm in length and 0.3 cm in width. The specimen is totally submitted in formalin in one cassette. Levels x 3. Time obtained: 11:25; time in formalin: 11:25. ARH:laurent ODELL M.D., PATHOLOGIST (Electronic signature on file) Signed out: 06/10/2018 14:35 PRINTED: 06/10/2018 Page 1 of 1 Performed By: #### SURG #### [place] [address] MAMM US BREAST LTD Observed: 06/06/2018 Status: F Source: [facility] 3:06 PM HEALTH SYSTEM REPOSITORY Performed at [facility] APPROVED BY: GLENNA EHR MD #[id number] - TOMAS DX BREAST BILATERAL BILATERAL DIGITAL DIAGNOSTIC MAMMOGRAM 3D/2D WITH CAD WITH MEDIOLATERAL OBLIQUE CRANIOCAUDAL: 06/06/2018 CLINICAL: Patient presents with right breast palpable finding. History of right breast cancer, status post lumpectomy with radiation. Comparison is made to exams dated: 12/06/2017 mammogram, 12/01/2016 mammogram, and 09/11/2015 mammogram - [facility]. There are scattered fibroglandular elements in both breasts. Current study was also evaluated with a Computer Aided Detection (CAD) system. Both breasts have post-operative findings. There is a focal asymmetry in the right breast lower outer aspect anterior depth. This correlates as palpated. No other significant masses, calcifications, or other findings are seen in either breast. INCOMPLETE: NEEDS ADDITIONAL IMAGING EVALUATION The focal asymmetry in the right breast lower outer aspect anterior depth has a differential diagnosis of a post surgical scar and is indeterminate. An ultrasound is recommended. #[id number] - MAMM US BREAST LTD RIGHT ULTRASOUND OF RIGHT BREAST: 06/06/2018 Comparison is made to exams dated: 12/06/2017 mammogram, 12/01/2016 mammogram, and 09/11/2015 mammogram - [facility]. Color flow and real-time ultrasound of the right breast were performed. Schreiber scale images of the real-time examination were reviewed. There is a 3 cm irregular area in the right breast at 6 o'clock in the retroareolar region. This irregular area is hypoechoic. This correlates as palpated. Color flow imaging demonstrates that there is no increase in vascularity. IMPRESSION: SUSPICIOUS OF MALIGNANCY - FOLLOW-UP RECOMMENDED The 3 cm irregular area in the right breast at 6 o'clock in the retroareolar region has a differential diagnosis of a scar and is suspicious of malignancy. An ultrasound guided biopsy is recommended. SUMMARY: Results and recommendations were discussed with the patient at time of examination. Informed consent for the recommended biopsy was explained and signed by the patient at the time of exam. She will sc hedule the biopsy at her convenience. Glenna garcía/emily:06/06/2018 17:41:00 copy to: BRAYDEN KUMAR D.O., ph: [phone], fax: [phone] Home Security Alarm Installer: Mildred Dawkins, [facility] Mammogram BI-RADS: 0 Indeterminate Ultrasound BI-RADS: 4 Suspicious abnormality TOMAS DX BREAST Observed: 06/06/2018 Status: F Source: [facility] BILATERAL 1:51 PM HEALTH SYSTEM REPOSITORY Performed at [facility] APPROVED BY: GLENNA HER MD #[id number] - TOMAS DX BREAST BILATERAL BILATERAL DIGITAL DIAGNOSTIC MAMMOGRAM 3D/2D WITH CAD WITH MEDIOLATERAL OBLIQUE CRANIOCAUDAL: 06/06/2018 CLINICAL: Patient presents with right breast palpable finding. History of right breast cancer, status post lumpectomy with radiation. Comparison is made to exams dated: 12/06/2017 mammogram, 12/01/2016 mammogram, and 09/11/2015 mammogram - [facility]. There are scattered fibroglandular elements in both breasts. Current study was also evaluated with a Computer Aided Detection (CAD) system. Both breasts have post-operative findings. There is a focal asymmetry in the right breast lower outer aspect anterior depth. This correlates as palpated. No other significant masses, calcifications, or other findings are seen in either breast. INCOMPLETE: NEEDS ADDITIONAL IMAGING EVALUATION The focal asymmetry in the right breast lower outer aspect anterior depth has a differential diagnosis of a post surgical scar and is indeterminate. An ultrasound is recommended. #[id number] - MAMM US BREAST LTD RIGHT ULTRASOUND OF RIGHT BREAST: 06/06/2018 Comparison is made to exams dated: 12/06/2017 mammogram, 12/01/2016 mammogram, and 09/11/2015 mammogram - [facility]. Color flow and real-time ultrasound of the right breast were performed. Schreiber scale images of the real-time examination were reviewed. There is a 3 cm irregular area in the right breast at 6 o'clock in the retroareolar region. This irregular area is hypoechoic. This correlates as palpated. Color flow imaging demonstrates that there is no increase in vascularity. IMPRESSION: SUSPICIOUS OF MALIGNANCY - FOLLOW-UP RECOMMENDED The 3 cm irregular area in the right breast at 6 o'clock in the retroareolar region has a differential diagnosis of a scar and is suspicious of malignancy. An ultrasound guided biopsy is recommended. SUMMARY: Results and recommendations were discussed with the patient at time of examination. Informed consent for the recommended biopsy was explained and signed by the patient at the time of exam. She will sc hedule the biopsy at her convenience. Glenna garcía/emily:06/06/2018 17:41:00 copy to: BRAYDEN KUMAR D.O., ph: [phone], fax: [phone] Home Security Alarm Installer: Mildred Dawkins, [facility] Mammogram BI-RADS: 0 Indeterminate Ultrasound BI-RADS: 4 Suspicious abnormality PROGRESS Observed: 06/06/2018 Status: COMPLETED Source: [place] 11:15 AM CLINIC OTHER CAMPUS REPOSITORY O ID: [id number] Author: Edna Rogers Service: (none) Author Type: Physician Type: Progress Notes Filed: 06/06/2018 4:02 PM Note Text: HPI: Ms. Marc is a White 78 year old woman who presents for follow up 6 month. Patient does perform monthly self breast exams. Patient presents to the clinic for 6 month follow up. Patient reports she has allergy bumps on her breasts. She reports she found a new palpable right breast lump. FAMILY HISTORY Problem Relation Age of Onset - Hypertension Father - Heart Father - Diabetes Father - Lipids Mother - Heart Mother - Osteoporosis Mother - Heart Brother - Breast Cancer Paternal Aunt great PAST MEDICAL HISTORY Diagnosis Date - Asthma - Breast cancer (HCC) 2004 right lumpectomy - Dense breast 05/16/15 - Diabetes (HCC) - Fibrocystic disease of breast 05/16/15 - GERD (gastroesophageal reflux disease) - Hemorrhoid - History of anemia - Hypertension - Migraine - Multiple allergies PAST SURGICAL HISTORY Procedure Laterality Date - APPENDECTOMY - BREAST SURGERY HX Right 05/04/2005 right lumpectomy - BREAST SURGERY HX 05/15/2005 [place] Lymph Node Biopsy - BREAST SURGERY HX Left 09/14/2005 Benign Papilloma - BREAST SURGERY HX Left 12/15/2010 benign Fatty tumor - BREAST SURGERY HX Right 03/21/2012 Benign Fatty tumor - DELIVERY ONLY , low transverse - DELIVERY ONLY , low transverse - EYE SURGERY HX Right 03/07/2009 Cataract - EYE SURGERY HX Left 04/04/2009 Cataract - SKIN BIOPSY HX 10/11/2012 atypical mole - SKIN BIOPSY HX 05/25/2014 atypical mole - TONSILLECTOMY AND ADENOIDECTOMY HX - TOTAL ABDOM HYSTERECTOMY 1991 Hysterectomy, SHANDA Social History Marital status: Spouse name: Years of education: Number of children: Social History Main Topics Smoking status: Never Smoker Smokeless tobacco: Never Used Alcohol use: No Drug use: No REVIEW OF SYSTEMS GENERAL: No weight loss, malaise or fevers HEENT: Negative for frequent or significant headaches, No changes in hearing or vision, no nose bleeds or other nasal problems NECK: Negative for lumps, goiter, pain and significant neck swelling MUSCULOSKELETAL: Negative for joint pain or swelling, back pain or muscle pain SKIN: Negative for lesions, rash, and itching HEMATOLOGY/LYMPHOLOGY: Negative for prolonged bleeding, bruising easily or swollen nodes NEURO: No history of headaches, syncope, paralysis, seizures or tremors PHYSICAL EXAMINATION: BP (!) 219/74 Pulse 68 Ht 149.9 cm (4' 11) Wt 61.2 kg (135 lb) BMI 27.27 kg/m? General appearance: Well appearing, alert, in no acute distress Skin: skin color, texture, turgor normal, no suspicious rashes or lesions Eyes: Anicteric sclera , Pupils are equally round and reactive Extremities:No clubbing, cyanosis, or edema. Neuro: Alert and oriented times three Breast Exam: On visual in spection of the breasts finds them to be Breasts: Right breast approximately 15% smaller than the right ?? RIGHT: Skin changes: incision at the 3 o'clock position, Nipple retraction: no Axillary adenopathy: no Supraclavicular adenopathy: no Palpable masses: no Tenderness: no Nipple discharge: no Thickenin. Central skin thickening due to radiation effect, unchanged 2. Bilateral area of thickening consistent with fibrocystic disease, unchanged 3. New central firmness measuring 5 cm as well as a new Divot located at the 6 o'clock position with hands raised above the head LEFT Skin changes: incision at the 9 o'clock and 6 o'clock position, unchanged Nipple retraction: no Axillary adenopathy: no Supraclavicular adenopathy: no Palpable masses: no Tenderness: tenderness located at the 6 o'clock position Nipple discharge: no Thickening: Bilateral area of thickening at the 5-6 o'clock position consistent with fibrocystic disease, unchanged. IMPRESSION / PLAN: This is an 78-year-old female with past personal history of right breast cancer who presents with complaints of a new palpable right breast lump. Clinical examination confirms changes on her clinical breast examination. There is a new central firmness measuring approximately 5 cm located in the right breast associated with a divot at 6:00 with her hand raised above her head. She also has tenderness in the left breast at the 6 o'clock position. These findings warrant further imaging with bilateral diagnostic mammogram and right breast ultrasound. Bilateral diagnostic mammogram and right breast ultrasound was ordered today. We'll await the results. Addendum: Breast imaging performed today reveals a suspicious lesion located at 6:00 in the right breast. Ultrasound guided biopsy is recommended. This was ordered today. We'll await the results. DIAGNOSIS: Encounter Diagnosis ICD-10-CM 1. Breast lump on right side at 6 o'clock position N63.10 LA DIAG W TOMAS BILAT US BREAST LTD RT 2. Breast pain, left N64.4 LA DIAG W TOMAS BILAT 3. Fibrocystic breast disease (FCBD) in female, unspecified laterality N60.19 4. Dense breast tissue on mammogram R92.2 5. Personal history of breast cancer Z85.3 6. Mass of lower outer quadrant of right breast N63.13 US BREAST LTD RT Monthly self breast exams encouraged. I discussed my findings and recommendations with the patient. Ms. Marc is in agreement with the plan. Oscar Ruiz LPN This document serves as a record of the services and decisions personally performed and made by Edna Rogers MD. It was created on her behalf by Nestor Carroll, a trained scribe. Clinician Attestation Statements: The information in this document, created by the medical billing specialist for me, accurately reflects the services I personally performed and the decisions made by me. I have reviewed and approved this document for accuracy. Edna Rogers MD CNOV Observed: 06/06/2018 Status: COMPLETED Source: [place] 11:00 AM CLINIC OTHER [place] REPOSITORY Office Visit (AGGBRCR) BELTRAN MARC ([id number]) 1940 F Date Time Provider Department 06/06/18 11:00 AM EDNA ROGERS AGGBRCR During your visit today, we recorded the following information about you: Pulse Blood pressure Weight Height 68/minute 219/74 61.2 kg 1.499 m Edna Rogers MD 06/06/2018 4:02 PM Addendum HPI: Ms. Marc is a White 78 year old woman who presents for follow up 6 month. Patient does perform monthly self breast exams. Patient presents to the clinic for 6 month follow up. Patient reports she has allergy bumps on her breasts. She reports she found a new palpable right breast lump. FAMILY HISTORY Problem Relation Age of Onset - Hypertension Father - Heart Father - Diabetes Father - Lipids Mother - Heart Mother - Osteoporosis Mother - Heart Brother - Breast Cancer Paternal Aunt great PAST MEDICAL HISTORY Diagnosis Date - Asthma - Breast cancer (HCC) 2004 right lumpectomy - Dense breast 05/16/15 - Diabetes (HCC) - Fibrocystic disease of breast 05/16/15 - GERD (gastroesophageal reflux disease) - Hemorrhoid - History of anemia - Hypertension - Migraine - Multiple allergies PAST SURGICAL HISTORY Procedure Laterality Date - APPENDECTOMY - BREAST SURGERY HX Right 05/04/2005 right lumpectomy - BREAST SURGERY HX 05/15/2005 [place] Lymph Node Biopsy - BREAST SURGERY HX Left 09/14/2005 Benign Papilloma - BREAST SURGERY HX Left 12/15/2010 benign Fatty tumor - BREAST SURGERY HX Right 03/21/2012 Benign Fatty tumor - DELIVERY ONLY , low transverse - DELIVERY ONLY , low transverse - EYE SURGERY HX Right 03/07/2009 Cataract - EYE SURGERY HX Left 04/04/2009 Cataract - SKIN BIOPSY HX 10/11/2012 atypical mole - SKIN BIOPSY HX 05/25/2014 atypical mole - TONSILLECTOMY AND ADENOIDECTOMY HX - TOTAL ABDOM HYSTERECTOMY 1991 Hysterectomy, SHANDA Social History Marital status: Spouse name: Years of education: Number of children: Social History Main Topics Smoking status: Never Smoker Smokeless tobacco: Never Used Alcohol use: No Drug use: No REVIEW OF SYSTEMS GENERAL: No weight loss, malaise or fevers HEENT: Negative for frequent or significant headaches, No changes in hearing or vision, no nose bleeds or other nasal problems NECK: Negative for lumps, goiter, pain and significant neck swelling MUSCULOSKELETAL: Negative for joint pain or swelling, back pain or muscle pain SKIN: Negative for lesions, rash, and itching HEMATOLOGY/LYMPHOLOGY: Negative for prolonged bleeding, bruising easily or swollen nodes NEURO: No history of headaches, syncope, paralysis, seizures or tremors PHYSICAL EXAMINATION: BP (!) 219/74 Pulse 68 Ht 149.9 cm (4' 11) Wt 61.2 kg (135 lb) BMI 27.27 kg/m? General appearance: Well appearing, alert, in no acute distress Skin: skin color, texture, turgor normal, no suspicious rashes or lesions Eyes: Anicteric sclera , Pupils are equally round and reactive Extremities:No clubbing, cyanosis, or edema. Neuro: Alert and oriented times three Breast Exam: On visual in spection of the breasts finds them to be Breasts: Right breast approximately 15% smaller than the right ?? RIGHT: Skin changes: incision at the 3 o'clock position, Nipple retraction: no Axillary adenopathy: no Supraclavicular adenopathy: no Palpable masses: no Tenderness: no Nipple discharge: no Thickenin. Central skin thickening due to radiation effect, unchanged 2. Bilateral area of thickening consistent with fibrocystic disease, unchanged 3. New central firmness measuring 5 cm as well as a new Divot located at the 6 o'clock position with hands raised above the head LEFT Skin changes: incision at the 9 o'clock and 6 o'clock position, unchanged Nipple retraction: no Axillary adenopathy: no Supraclavicular adenopathy: no Palpable masses: no Tenderness: tenderness located at the 6 o'clock position Nipple discharge: no Thickening: Bilateral area of thickening at the 5-6 o'clock position consistent with fibrocystic disease, unchanged. IMPRESSION / PLAN: This is an 78-year-old female with past personal history of right breast cancer who presents with complaints of a new palpable right breast lump. Clinical examination confirms changes on her clinical breast examination. There is a new central firmness measuring approximately 5 cm located in the right breast associated with a divot at 6:00 with her hand raised above her head. She also has tenderness in the left breast at the 6 o'clock position. These findings warrant further imaging with bilateral diagnostic mammogram and right breast ultrasound. Bilateral diagnostic mammogram and right breast ultrasound was ordered today. We'll await the results. Addendum: Breast imaging performed today reveals a suspicious lesion located at 6:00 in the right breast. Ultrasound guided biopsy is recommended. This was ordered today. We'll await the results. DIAGNOSIS: Encounter Diagnosis ICD-10-CM 1. Breast lump on right side at 6 o'clock position N63.10 LA DIAG W [facility] US BREAST LTD RT 2. Breast pain, left N64.4 LA DIAG W TOMAS BILAT 3. Fibrocystic breast disease (FCBD) in female, unspecified laterality N60.19 4. Dense breast tissue on mammogram R92.2 5. Personal history of breast cancer Z85.3 6. Mass of lower outer quadrant of right breast N63.13 US BREAST LTD RT Monthly self breast exams encouraged. I discussed my findings and recommendations with the patient. Ms. Marc is in agreement with the plan. Oscar Ruiz LPN This document serves as a record of the services and decisions personally performed and made by Edna Rogers MD. It was created on her behalf by Nestor Carroll, a trained scribe. Clinician Attestation Statements: The information in this document, created by the medical billing specialist for me, accurately reflects the services I personally performed and the decisions made by me. I have reviewed and approved this document for accuracy. MD Oscar Payton LPN 06/06/2018 11:39 AM Signed Upon initial intake patient BP 200/75-68. Patient states that she had taken her medication this morning per usual. After patient visit with doctor, patient c/o dizziness. BP was reassessed with a result of 219/74-63. Patient declines any intervention at this time. AGUSTO Regalado MD 06/06/2018 4:03 PM Signed Addended by: EDNA ROGERS MD on: 06/06/2018 04:03 PM Modules accepted: Orders Manager Cash: Facesheet ID: [id number] 06/06/2018 10:32 AM Author: JEFFERY MARTINEZ Signed by MICHELLE PROVIDER on 06/06/2018 at 10:31 AM Document text: Display document [id number] only Referring Provider: BRAYDEN KUMAR [[id number]] Allergies As of Date: 06/06/2018 Noted Allergy Reaction CEPHALOSPORINS 08/13/2015 2 - Rash AVAPRO (IRBESARTAN) 08/13/2015 2 - Rash BENADRYL (DIPHENHYDRAMINE HCL) 08/13/2015 14 - Other: See Comments Comments: Difficulty swallowing CODEINE 08/13/2015 5 - Intolerance COZAAR (LOSARTAN POTASSIUM) 08/13/2015 2 - Rash DEMEROL (MEPERIDINE (PF)) 08/13/2015 5 - Intolerance ERYTHROMYCIN 08/13/2015 7 - Swelling LEXAPRO (ESCITALOPRAM OXALATE) 08/13/2015 2 - Rash NEOMYCIN 08/13/2015 2 - Rash NORVASC (AMLODIPINE BESYLATE) 08/13/2015 2 - Rash PENICILLINS 08/13/2015 2 - Rash ZYRTEC (CETIRIZINE HCL) 08/13/2015 5 - Intolerance Date Reviewed: 06/06/2018 Reviewed by: Edna Rogers - Fully Assessed Reason for Visit: F/U 6 months [1177] Primary Visit Diagnosis:Breast lump on right side at 6 o'clock position [N63.10] Other Visit Diagnoses:Breast pain, left [N64.4] Fibrocystic breast disease (FCBD) in female, unspecified laterality [N60.19] Dense breast tissue on mammogram [R92.2] Personal history of breast cancer [Z85.3] Mass of lower outer quadrant of right breast [N63.13] Abnormal finding on breast imaging [R92.8] Order(s):LA SANCHES [[id number]] Order #: [id number] FUTURE BREAST LTD RT [[id number]] Order #: [id number] FUTURE BIOPSY BREAST RT [[id number]] Order #: [id number] FUTURE Prescriptions as of 06/06/2018 Sig: CHOLECALCIFEROL (VITAMIN D3) * Take by mouth. HYDRALAZINE 100 MG TABLET Take 100 mg by mouth three ti* LEVOTHYROXINE 88 MCG TABLET Take 88 mcg by mouth daily be* MAGNESIUM (OXIDE/AA CHELATE) * Take by mouth once daily. CLONIDINE HCL 0.1 MG TABLET DILT-XR 120 MG CAPSULE, EXTEN* PROBIOTIC 4X ORAL Take by mouth. ASCORBIC ACID (VITAMIN C) 500* Take by mouth. MULTIVITAMIN TABLET Take 1 tablet by mouth once d* VITAMIN B COMPLEX ORAL Take by mouth. VITAMIN E 400 UNIT CAPSULE Take 400 Units by mouth once * ENALAPRIL MALEATE 20 MG TABLET FLUTICASONE 50 MCG/ACTUATION * OMEPRAZOLE 20 MG CAPSULE,LEON* FEXOFENADINE 180 MG TABLET Take 180 mg by mouth once wilda* VITAMIN D2 ORAL Take by mouth. EPINEPHRINE 0.3 MG/0.3 ML INJ* Inject 0.3 mL intramuscularly* Patient not taking: Reported on 06/06/2018 Problem List As Of Date 06/06/2018 Noted Resolved Allergic rhinitis due to pollen [J30.1] INVALID FOR* Allergic rhinitis due to house dust mite [J30.8*INVALID FOR* Food allergy [Z91.018] INVALID FOR* Allergic rhinitis caused by mold [J30.89] INVALID FOR* Allergic rhinitis due to animal hair and dander*INVALID FOR* Type 2 diabetes mellitus without complication (*INVALID FOR* Mild intermittent asthma without complication [*INVALID FOR* Eosinophilic esophagitis [K20.0] INVALID FOR* Allergy status to penicillin [Z88.0] INVALID FOR* Fibrocystic breast disease (FCBD) in female [N6*INVALID FOR* Dense breast tissue on mammogram [R92.2] INVALID FOR* Personal history of breast cancer [Z85.3] INVALID FOR* Breast lump on right side at 6 o'clock position*INVALID FOR* Breast pain, left [N64.4] INVALID FOR* Visit Notes: >> Oscar Ruiz Mon Jun 06, 2018 11:37 AM Status: Signed Upon initial intake patient BP 200/75-68. Patient states that she had taken her medication this morning per usual. After patient visit with doctor, patient c/o dizziness. BP was reassessed with a result of 219/74-63. Patient declines any intervention at this time. Oscar Ruiz LPN Follow-up and Disposition History Recorded Letter Text Letter Text Encounter Status:Closed by EDNA ROGERS MD on 06/06/18 PROGRESS Observed: 12/06/2017 Status: COMPLETED Source: [place] 3:07 PM CLINIC OTHER CAMPUS REPOSITORY O ID: [id number] Author: Edna Rogers Service: (none) Author Type: Physician Type: Progress Notes Filed: 12/06/2017 3:30 PM Note Text: HPI: Ms. Marc is a White 77 year old woman who presents for follow up 6 month CBE with films. Patient does perform monthly self breast exams. Patient denies: any concerns. Patient reports today for a 6 month CBE with films. She reports she was in the hospital for high blood pressure with minor blockage of arteries. She was treated and she was medically cleared. She states she walks with a walker due to dizziness. She denies changes to her family health since her last visit. FAMILY HISTORY Problem Relation Age of Onset - Hypertension Father - Heart Father - Diabetes Father - Lipids Mother - Heart Mother - Osteoporosis Mother - Heart Brother - Breast Cancer Paternal Aunt great PAST MEDICAL HISTORY Diagnosis Date - Asthma - Breast cancer (HCC) 2004 right lumpectomy - Dense breast 05/16/15 - Diabetes (HCC) - Fibrocystic disease of breast 05/16/15 - GERD (gastroesophageal reflux disease) - Hemorrhoid - History of anemia - Hypertension - Migraine - Multiple allergies PAST SURGICAL HISTORY Procedure Laterality Date - APPENDECTOMY - BREAST SURGERY HX Right 05/04/2005 right lumpectomy - BREAST SURGERY HX 05/15/2005 [place] Lymph Node Biopsy - BREAST SURGERY HX Left 09/14/2005 Benign Papilloma - BREAST SURGERY HX Left 12/15/2010 benign Fatty tumor - BREAST SURGERY HX Right 03/21/2012 Benign Fatty tumor - DELIVERY ONLY , low transverse - DELIVERY ONLY , low transverse - EYE SURGERY HX Right 03/07/2009 Cataract - EYE SURGERY HX Left 04/04/2009 Cataract - SKIN BIOPSY HX 10/11/2012 atypical mole - SKIN BIOPSY HX 05/25/2014 atypical mole - TONSILLECTOMY AND ADENOIDECTOMY HX - TOTAL ABDOM HYSTERECTOMY 1991 Hysterectomy, SHANDA Social History Marital status: Spouse name: Years of education: Number of children: Social History Main Topics Smoking status: Never Smoker Smokeless status: Never Used Alcohol use: No Drug use: No LAB AND IMAGING RESULTS: #[id number] TOMAS, SCREENING BREAST BILATERAL DIGITAL SCREENING MAMMOGRAM 3D/2D WITH CAD WITH MEDIOLATERAL OBLIQUE CRANIOCAUDAL: 12/06/2017 CLINICAL: Routine screening mammogram. Patient reports no breast problems. Comparison is made to exams dated: 11/21/2016 mammogram, 09/11/2015 mammogram, and 09/03/2014 mammogram. There is scattered fibroglandular elements in both breasts. Current study was also evaluated with a CAD system. Post-op changes are present in both breasts. No significant masses, calcifications, or other findings are seen in either breast. There has been no significant interval change. IMPRESSION: BENIGN There is no mammographic evidence of malignancy. A 1 year screening mammogram is recommended. Natanael Tony MD REVIEW OF SYSTEMS GENERAL: No weight loss, malaise or fevers HEENT: Negative for frequent or significant headaches, No changes in hearing or vision, no nose bleeds or other nasal problems NECK: Negative for lumps, goiter, pain and significant neck swelling MUSCULOSKELETAL: Negative for back pain or muscle pain, positive for arthritis and swelling in hands, hip, and feet SKIN: Negative for lesions, rash, and itching HEMATOLOGY/LYMPHOLOGY: Negative for prolonged bleeding, bruising easily or swollen nodes NEURO: No history of headaches, syncope, paralysis, seizures or tremors, positive for dizziness PHYSICAL EXAMINATION: BP 193/66 Pulse 61 Ht 149.9 cm (4' 11) Wt 61.2 kg (135 lb) BMI 27.27 kg/m2 General appearance: Well appearing, alert, in no acute distress Skin: skin color, texture, turgor normal, no suspicious rashes or lesions Eyes: Anicteric sclera , Pupils are equally round and reactive Extremities:No clubbing, cyanosis, or edema. Neuro: Alert and oriented times three Breast Exam: On visual in spection of the breasts finds them to be Breasts: Right breast approximately 15% smaller than the right ?? RIGHT: Skin changes: incision at the 3 o'clock position Nipple retraction: no Axillary adenopathy: no Supraclavicular adenopathy: no Palpable masses: no Tenderness: no Nipple discharge: no Thickenin. Central skin thickening due to radiation effect, unchanged 2. Bilateral area of thickening consistent with fibrocystic disease, unchanged 3. Central firmness consistent with scar tissue, unchanged ?? LEFT Skin changes: incision at the 9 o'clock and 6 o'clock position Nipple retraction: no Axillary adenopathy: no Supraclavicular adenopathy: no Palpable masses: no Tenderness: no Nipple discharge: no Thickening: Bilateral area of thickening at the 5-6 o'clock position consistent with fibrocystic disease, unchanged. IMPRESSION / PLAN: This is a 78-year-old female with past personal history of right breast cancer. She presents for clinical breast examination. She denies any new findings or changes on her breast exam. ?? Clinical examination finds palpable thickening in the left breast central portion with associated skin thickening due to radiation effect. There are multiple incisional scars on both breasts. There are bilateral areas of thickening consistent with fibrocystic disease. There is no discrete suspicious mass, skin change nipple discharge, or lymphadenopathy in either breast. There is no evidence of local regional recurrence. ?? Bilateral screening mammogram performed today was reviewed both films and reports. The study was read as negative. At this point, reassurances provided. She'll follow-up in 6 months for clinical breast examination. She should call with any new findings or changes in the interim. DIAGNOSIS: Encounter Diagnosis ICD-10-CM 1. Fibrocystic breast disease (FCBD) in female, unspecified laterality N60.19 2. Dense breast tissue on mammogram R92.2 3. Personal history of breast cancer Z85.3 Monthly self breast exams encouraged. I discussed my findings and recommendations with the patient. Ms. Marc is in agreement with the plan. Oscar Ruiz LPN This document serves as a record of the services and decisions personally performed and made by Edna Rogers MD. It was created on their behalf by Yancy Bustillo, a trained medical billing specialist. Clinician Attestation Statements: The information in this document, created by the medical billing specialist for me, accurately reflects the services I personally performed and the decisions made by me. I have reviewed and approved this document for accuracy. MD BROOKE PaytonO, SCREENING BREAST Observed: 12/06/2017 Status: F Source: [facility] 2:24 PM HEALTH SYSTEM REPOSITORY Performed at [facility] APPROVED BY: Natanael Tony MD #[id number] - TOMAS, SCREENING BREAST BILATERAL DIGITAL SCREENING MAMMOGRAM 3D/2D WITH CAD WITH MEDIOLATERAL OBLIQUE CRANIOCAUDAL: 12/06/2017 CLINICAL: Routine screening mammogram. Patient reports no breast problems. Comparison is made to exams dated: 12/01/2016 mammogram, 09/11/2015 mammogram - [facility], and 09/03/2014 mammogram - [facility]. There are scattered fibroglandular elements in both breasts. Current study was also evaluated with a Computer Aided Detection (CAD) system. Post-op changes are present in both breasts. No significant masses, calcifications, or other findings are seen in either breast. There has been no significant interval change. IMPRESSION: BENIGN There is no mammographic evidence of malignancy. A 1 year screening mammogram is recommended. Natanael wilcox/emily:12/06/2017 14:14:39 copy to: BRAYDEN KUMAR D.O., ph: [phone], fax: [phone] Home Security Alarm Installer: Andrae Redding RT(Evy)(M), [facility] Mammogram BI-RADS: 2 Benign CNOV Observed: 12/06/2017 Status: COMPLETED Source: [place] 2:15 PM CLINIC OTHER CAMPUS REPOSITORY Office Visit (AGGBRCR) JOSE MANUELAMERICABELTRAN ([id number]) 1940 F Date Time Provider Department 12/06/17 2:15 PM EDNA ROGERS AGGBRCR During your visit today, we recorded the following information about you: Pulse Blood pressure Weight Height 61/minute 193/66 61.2 kg 1.499 m Edna Rogers MD 12/06/2017 3:30 PM Signed HPI: Ms. Marc is a White 77 year old woman who presents for follow up 6 month CBE with films. Patient does perform monthly self breast exams. Patient denies: any concerns. Patient reports today for a 6 month CBE with films. She reports she was in the hospital for high blood pressure with minor blockage of arteries. She was treated and she was medically cleared. She states she walks with a walker due to dizziness. She denies changes to her family health since her last visit. FAMILY HISTORY Problem Relation Age of Onset - Hypertension Father - Heart Father - Diabetes Father - Lipids Mother - Heart Mother - Osteoporosis Mother - Heart Brother - Breast Cancer Paternal Aunt great PAST MEDICAL HISTORY Diagnosis Date - Asthma - Breast cancer (HCC) 2004 right lumpectomy - Dense breast 05/16/15 - Diabetes (HCC) - Fibrocystic disease of breast 05/16/15 - GERD (gastroesophageal reflux disease) - Hemorrhoid - History of anemia - Hypertension - Migraine - Multiple allergies PAST SURGICAL HISTORY Procedure Laterality Date - APPENDECTOMY - BREAST SURGERY HX Right 05/04/2005 right lumpectomy - BREAST SURGERY HX 05/15/2005 [place] Lymph Node Biopsy - BREAST SURGERY HX Left 09/14/2005 Benign Papilloma - BREAST SURGERY HX Left 12/15/2010 benign Fatty tumor - BREAST SURGERY HX Right 03/21/2012 Benign Fatty tumor - DELIVERY ONLY , low transverse - DELIVERY ONLY , low transverse - EYE SURGERY HX Right 03/07/2009 Cataract - EYE SURGERY HX Left 04/04/2009 Cataract - SKIN BIOPSY HX 10/11/2012 atypical mole - SKIN BIOPSY HX 05/25/2014 atypical mole - TONSILLECTOMY AND ADENOIDECTOMY HX - TOTAL ABDOM HYSTERECTOMY 1990 Hysterectomy, SHANDA Social History Marital status: Spouse name: Years of education: Number of children: Social History Main Topics Smoking status: Never Smoker Smokeless status: Never Used Alcohol use: No Drug use: No LAB ANDamp; IMAGING RESULTS: #[id number] TOMAS, SCREENING BREAST BILATERAL DIGITAL SCREENING MAMMOGRAM 3D/2D WITH CAD WITH MEDIOLATERAL OBLIQUE CRANIOCAUDAL: 12/06/2017 CLINICAL: Routine screening mammogram. Patient reports no breast problems. Comparison is made to exams dated: 11/21/2016 mammogram, 09/11/2015 mammogram, and 09/03/2014 mammogram. There is scattered fibroglandular elements in both breasts. Current study was also evaluated with a CAD system. Post-op changes are present in both breasts. No significant masses, calcifications, or other findings are seen in either breast. There has been no significant interval change. IMPRESSION: BENIGN There is no mammographic evidence of malignancy. A 1 year screening mammogram is recommended. Natanael Tony MD REVIEW OF SYSTEMS GENERAL: No weight loss, malaise or fevers HEENT: Negative for frequent or significant headaches, No changes in hearing or vision, no nose bleeds or other nasal problems NECK: Negative for lumps, goiter, pain and significant neck swelling MUSCULOSKELETAL: Negative for back pain or muscle pain, positive for arthritis and swelling in hands, hip, and feet SKIN: Negative for lesions, rash, and itching HEMATOLOGY/LYMPHOLOGY: Negative for prolonged bleeding, bruising easily or swollen nodes NEURO: No history of headaches, syncope, paralysis, seizures or tremors, positive for dizziness PHYSICAL EXAMINATION: BP 193/66 Pulse 61 Ht 149.9 cm (4' 11ANDquot;) Wt 61.2 kg (135 lb) BMI 27.27 kg/m2 General appearance: Well appearing, alert, in no acute distress Skin: skin color, texture, turgor normal, no suspicious rashes or lesions Eyes: Anicteric sclera , Pupils are equally round and reactive Extremities:No clubbing, cyanosis, or edema. Neuro: Alert and oriented times three Breast Exam: On visual in spection of the breasts finds them to be Breasts: Right breast approximately 15% smaller than the right ?? RIGHT: Skin changes: incision at the 3 o'clock position Nipple retraction: no Axillary adenopathy: no Supraclavicular adenopathy: no Palpable masses: no Tenderness: no Nipple discharge: no Thickenin. Central skin thickening due to radiation effect, unchanged 2. Bilateral area of thickening consistent with fibrocystic disease, unchanged 3. Central firmness consistent with scar tissue, unchanged ?? LEFT Skin changes: incision at the 9 o'clock and 6 o'clock position Nipple retraction: no Axillary adenopathy: no Supraclavicular adenopathy: no Palpable masses: no Tenderness: no Nipple discharge: no Thickening: Bilateral area of thickening at the 5-6 o'clock position consistent with fibrocystic disease, unchanged. IMPRESSION / PLAN: This is a 78-year-old female with past personal history of right breast cancer. She presents for clinical breast examination. She denies any new findings or changes on her breast exam. ?? Clinical examination finds palpable thickening in the left breast central portion with associated skin thickening due to radiation effect. There are multiple incisional scars on both breasts. There are bilateral areas of thickening consistent with fibrocystic disease. There is no discrete suspicious mass, skin change nipple discharge, or lymphadenopathy in either breast. There is no evidence of local regional recurrence. ?? Bilateral screening mammogram performed today was reviewed both films and reports. The study was read as negative. At this point, reassurances provided. She'll follow-up in 6 months for clinical breast examination. She should call with any new findings or changes in the interim. DIAGNOSIS: Encounter Diagnosis ICD-10-CM 1. Fibrocystic breast disease (FCBD) in female, unspecified laterality N60.19 2. Dense breast tissue on mammogram R92.2 3. Personal history of breast cancer Z85.3 Monthly self breast exams encouraged. I discussed my findings and recommendations with the patient. Ms. Marc is in agreement with the plan. Oscar Ruiz LPN This document serves as a record of the services and decisions personally performed and made by Edna Rogers MD. It was created on their behalf by Yancy Bustillo, a trained medical billing specialist. Clinician Attestation Statements: The information in this document, created by the medical billing specialist for me, accurately reflects the services I personally performed and the decisions made by me. I have reviewed and approved this document for accuracy. Edna Rogers MD Referring Provider: BRAYDEN KUMAR [[id number]] Allergies As of Date: 12/06/2017 Noted Allergy Reaction CEPHALOSPORINS 08/13/2015 2 - Rash AVAPRO (IRBESARTAN) 08/13/2015 2 - Rash BENADRYL (DIPHENHYDRAMINE HCL) 08/13/2015 14 - Other: See Comments Comments: Difficulty swallowing CODEINE 08/13/2015 5 - Intolerance COZAAR (LOSARTAN POTASSIUM) 08/13/2015 2 - Rash DEMEROL (MEPERIDINE (PF)) 08/13/2015 5 - Intolerance ERYTHROMYCIN 08/13/2015 7 - Swelling LEXAPRO (ESCITALOPRAM OXALATE) 08/13/2015 2 - Rash NEOMYCIN 08/13/2015 2 - Rash NORVASC (AMLODIPINE BESYLATE) 08/13/2015 2 - Rash PENICILLINS 08/13/2015 2 - Rash ZYRTEC (CETIRIZINE HCL) 08/13/2015 5 - Intolerance Date Reviewed: 12/06/2017 Reviewed by: Oscar Ruiz - Fully Assessed Reason for Visit: F/U 6 months [1177] Cmt: review films Primary Visit Diagnosis:Fibrocystic breast disease (FCBD) in female, unspecified laterality [N60.19] Other Visit Diagnoses:Dense breast tissue on mammogram [R92.2] Personal history of breast cancer [Z85.3] Prescriptions as of 12/06/2017 Sig: HYDRALAZINE 100 MG TABLET Take 100 mg by mouth three ti* LEVOTHYROXINE 88 MCG TABLET Take 88 mcg by mouth daily be* MAGNESIUM (OXIDE/AA CHELATE) * Take by mouth once daily. CLONIDINE HCL 0.1 MG TABLET DILT-XR 120 MG CAPSULE, EXTEN* PROBIOTIC 4X ORAL Take by mouth. ASCORBIC ACID (VITAMIN C) 500* Take by mouth. MULTIVITAMIN TABLET Take 1 tablet by mouth once d* VITAMIN B COMPLEX ORAL Take by mouth. VITAMIN D2 ORAL Take by mouth. VITAMIN E 400 UNIT CAPSULE Take 400 Units by mouth once * ENALAPRIL MALEATE 20 MG TABLET FLUTICASONE 50 MCG/ACTUATION * OMEPRAZOLE 20 MG CAPSULE,LEON* FEXOFENADINE 180 MG TABLET Take 180 mg by mouth once wilda* EPINEPHRINE 0.3 MG/0.3 ML INJ* Inject 0.3 mL intramuscularly* Medication notes this encounter CLONIDINE HCL 0.1 MG TABLET >> Oscar Ruiz LPN 12/06/2017 3:04 PM >> OSCAR RUIZ LPN Mon Dec 06, 2017 3:04 PM Three times daily Problem List As Of Date 12/06/2017 Noted Resolved Allergic rhinitis due to pollen [J30.1] INVALID FOR* Allergic rhinitis due to house dust mite [J30.8*INVALID FOR* Food allergy [Z91.018] INVALID FOR* Allergic rhinitis caused by mold [J30.89] INVALID FOR* Allergic rhinitis due to animal hair and dander*INVALID FOR* Type 2 diabetes mellitus without complication (*INVALID FOR* Mild intermittent asthma without complication [*INVALID FOR* Eosinophilic esophagitis [K20.0] INVALID FOR* Allergy status to penicillin [Z88.0] INVALID FOR* Fibrocystic breast disease (FCBD) in female [N6*INVALID FOR* Dense breast tissue on mammogram [R92.2] INVALID FOR* Personal history of breast cancer [Z85.3] INVALID FOR* Medications Discontinued During This Encounter hydrALAZINE (APRESOLINE) 10 mg tablet 04/09/2017 12/06/2017 Class: Historical Med Sig: Disc: Changing Therapy/Dosage Form SYNTHROID 75 mcg tablet 07/12/2015 12/06/2017 Class: Historical Med Sig: Disc: Changing Therapy/Dosage Form Disposition: Return in about 6 months (around 06/07/2018). Follow-up and Disposition History Recorded Letter Text Encounter Status:Closed by EDNA ROGERS MD on 12/06/17 ALLERGIES ALLERGIES DATE TYPE / NAME / CODE REACTION SEVERITY SOURCE CODE 08/13/2015 Drug CEPHALOSPORINS RASH [facility] [place] Class/4195 Clinic Other [address]([facility] [place] [facility]) Repository 08/13/2015 DRUG IRBESARTAN RASH [place] INGREDI/41 Clinic Other [id number]( [place] [facility]) Repository 08/13/2015 DRUG DIPHENHYDRAMINE HCL OTHER: SEE C [place] INGREDI/41 Clinic Other [id number]( [place] [facility]) Repository 08/13/2015 DRUG CODEINE INTOLERANCE [place] INGREDI/41 Clinic Other [id number]( [place] [facility]) Repository 08/13/2015 DRUG LOSARTAN POTASSIUM RASH [place] INGREDI/41 Clinic Other [id number]( [place] [facility]) Repository 08/13/2015 DRUG/81082 MEPERIDINE (PF) INTOLERANCE [place] 1003([facility] Other D CT) [place] Repository 08/13/2015 DRUG/06531 ERYTHROMYCIN SWELLING [place] 1003([facility] Other D CT) [place] Repository 08/13/2015 DRUG ESCITALOPRAM OXALATE RASH [place] INGREDI/41 Clinic Other [id number]( [place] [facility]) Repository 08/13/2015 DRUG NEOMYCIN RASH [place] INGREDI/41 Clinic Other [id number]( [place] [facility]) Repository 08/13/2015 DRUG AMLODIPINE BESYLATE RASH [place] INGREDI/41 Clinic Other [id number]( [place] [facility]) Repository 08/13/2015 Drug PENICILLINS RASH [place] Class/4195 Clinic Other 45030([facility] [place] [facility]) Repository 08/13/2015 DRUG CETIRIZINE HCL INTOLERANCE [place] IN[place]EDI/41 Clinic Other 4734773( [place] [facility]) Repository NG/5217004 CEPHALOSPORINS [facility] Repository NG/4184814 IRBESARTAN [facility] 06([facility] Repository NG/3335374 DIPHENHYDRAMINE HCL [facility] 06([facility]) Repository NG/8705669 CODEINE [facility] 06([facility]) Repository NG/8465820 LOSARTAN POTASSIUM [facility] 06([facility]) Repository NG/3081337 MEPERIDINE (PF) [facility] 06([facility]) Repository NG/1368845 ERYTHROMYCIN [facility] 06([facility]) Repository NG/7517498 ESCITALOPRAM OXALATE [facility] 06([facility] Repository NG/8272153 NEOMYCIN [facility] 06([facility]) Repository NG/3326949 AMLODIPINE BESYLATE [facility] 06([facility]) Repository NG/8236347 PENICILLINS [facility] 06([facility]) Repository NG/0209008 CETIRIZINE HCL [facility] 06([facility]) Repository ENCOUNTERS ENCOUNTERS ADMIT/DISCHARGE ACCOUNT NUMBER ADMITTING ENCOUNTER LOCATION SOURCE CLASS 08/11/2018 [id number] Emergency [facility] [place] [address] EDRoom: 2A System 444Bed: Repository [id number] 08/02/2018 [id number] Ambulatory [facility] ding:LAB Repository 06/15/2018/06/15/20 [id number] Ambulatory [address] Other [place] Repository 06/15/2018/06/15/20 [id number] Ambulatory [facility] [place] [address] MEDICAL Repository CENTERBuildi ng:AGGBRCR 06/09/2018/06/09/20 [id number] Ambulatory [facility] [place] [address] MEDICAL Repository CENTERBuildi ng:AKXRMA 06/09/2018 [id number] Ambulatory [facility] Other [place] Repository 06/07/2018 [id number] Ambulatory [facility] [place] [facility] MEDICAL Repository CENTERBuildi ng:AGGBRCR 06/06/2018/06/06/20 [id number] Ambulatory [facility] [place] [address] MEDICAL Repository CENTERBuildi ng:AKXRMA 06/06/2018 [id number] Ambulatory [facility] Other [place] Repository 06/06/2018/06/06/20 [id number] Ambulatory [address] Other [place] Repository 06/06/2018/06/06/20 [id number] Ambulatory [facility] [place] [address] MEDICAL Repository CENTERBuildi ng:AGGBRCR 12/06/2017/12/07/19 [id number] Ambulatory [address] Other [place] Repository 12/06/2017/12/07/19 [id number] Ambulatory [facility] [place] [address] MEDICAL Repository CENTERBuildi ng:AGGBRCR 12/06/2017 [id number] Ambulatory [facility] [place] Repository 12/06/2017/12/07/19 [id number] Ambulatory [facility] [place] [address] MEDICAL Repository CENTERBuildi ng:AKXRMA PAYERS PAYERS ENCOUNTER GUARANTOR PAYER SUBSCRIBER SOURCE 08/11/2018 [facility] Insurance:MedicarePolic MellickDOB: System y Number: Effective [id number] [facility] Date: [place], [place] [address]Ptf: () 08/11/2018 Secondary [facility] Insurance:MedicarePolic MellickDOB: System y Number: Effective [id number] Repository Date: 08/11/2018 Tertiary [facility] Insurance:[place] Blue MellickDOB: System [facility] [id number] Repository Number: Effective Date: 08/02/2018 BELTRAN B Primary BELTRAN B [place] [id number] Insurance:MEDICARE PART MELLICKDOB: [facility] BPolicy Number: [id number] [address]Afs: [id number] Repository Date:2018-08-02 () 08/02/2018 Secondary BELTRAN B [place] Insurance:ANTHEMPolicy MELLICKDOB: [facility] Number: [id number] [id number] Repository Date:[id number] [address]ET: 08/02/2018 Tertiary Insurance:SELF NOT GIVENUNK [place] PAY [facility] Number: Effective Hospital Date:2018-08-02 Repository 06/15/2018 BELTRAN B Primary BELRTAN B [facility] MELLICKDOB: Insurance:MEDICARE A MELLICKDOB: Health System AND BPolicy Number: [id number] [facility] [id number] [facility] Date: [place] [address]Heg: () 06/15/2018 Secondary BELTRAN B [facility] Insurance:ANTHEM MELLICKDOB: Health System MEDICARE [id number] Repository SUPPLEMENTPolicy Number: [id number] Date: 06/09/2018 BELTRAN B Primary BELTRAN B [facility] MELLICKDOB: Insurance:MEDICARE A [facility]: [facility] AND BPolicy Number: [id number] Repository [place] [id number] [place], [place]: [place] [address]Dnz: (HP) 06/09/2018 Secondary BELTRAN B [facility] Insurance:ANTHEM MELLICKDOB: Health System MEDICARE [id number] Repository SUPPLEMENTPolicy Number: [id number] Date: 06/07/2018 BELTRAN B Primary BELTRAN B [facility] MELLICKDOB: Insurance:[facility]ICARE A [facility] AND BPolicy Number: [id number] Repository [place] [id number] [place], [place]: [place] [address]Nyy: (HP) 06/07/2018 Secondary BELTRAN B [facility] Insurance:MONTROSE CARD MELLICKDOB: Health System TRADITIONALPolicy [id number] Repository Number: [id number] Date: 06/06/2018 BELTRAN B Primary BELTRAN B [facility] MELLICKDOB: Insurance:MEDICARE A MELLICKDOB: Health System AND BPolicy Number: [id number] Repository [place] [id number] [place], Date: [place] [address]Vqs: (HP) 06/06/2018 Secondary BELTRAN B [facility] Insurance:ANTHEM MELLICKDOB: Health System MEDICARE [id number] Repository SUPPLEMENTPolicy Number: [id number] Date: 06/06/2018 BELTRAN B Primary BELTRAN B [facility] MELLICKDOB: Insurance:MEDICARE A MELLICKDOB: Health System AND BPolicy Number: [id number] Repository [place] [id number] [place], Date: [place] [address]Riq: () 06/06/2018 Secondary BELTRAN B [facility] Insurance:ANTHEM [facility]ELROB[facility]OSPITALDOB: [facility] System MEDICARE [id number] Repository SUPPLEMENTPolicy Number: [id number] Date: 12/06/2017 BELTRAN B Primary BELTRAN B [facility] MELLICKDOB: Insurance:MEDICARE A [facility] AND BPolicy Number: [id number] Repository [place] [id number] [place], Date: [place] [address]Ajn: () 12/06/2017 Secondary BELTRAN B [facility] Insurance:BLUE CARD [facility]: [id number] Repository Number: [id number] Date: 12/06/2017 BELTRAN B Primary BELTRAN B [facility] MELLICKDOB: Insurance:MEDICARE A [facility] SATELLITEB: Health System AND BPolicy Number: [id number] Repository [place] [id number] [place], Date: [place] [address]Tos: () 12/06/2017 Secondary BELTRAN B [facility] Insurance:BLUE CARD [facility]: [id number] Repository Number: [id number] Date:
== END ==
PROVIDERS: Family Provider Family Medicine; PCP Family Medicine; Referring Provider Otolaryngology; Visit Provider Otolaryngology
DX: R22.1 Localized swelling, mass and lump, neck (principal)
CPT/HCPCS: 10021; 88161; 88305